=== PATIENT | female | born 1945 | race African-American/Black ===

== ENCOUNTER 2018-06-22 11:51 | Inpatient (IN) | payer MEDICARE, OTHER ==
[~2018-06-22] VITALS: Ht 172.7 cm; Wt 128.4 kg
--- NOTE | ~2018-06-22 | O ---
[facility] [place] [address] OPERATIVE REPORT Name: AZALIA CAMERON Room #: 460-P ADM IN M.R.#: [id number] Admission: 06/22/18 Attend Phys: Selina Randhawa MD Discharge: Date of : 49 Report #: [id number] THIS REPORT FOR: //name// CC: Vahe Randhawa MD DATE OF SERVICE: 06/24/2018 SURGEON: Tano Morgan MD IMPORT EXPORT CLERK: None. PREOPERATIVE DIAGNOSES: 1. Unstageable right gluteal decubitus ulcer. 2. Type 2 diabetes mellitus. 3. Hypertension. 4. Cardiomyopathy. 5. Morbid obesity. 6. Gastroesophageal reflux disease. POSTOPERATIVE DIAGNOSES: 1. Large stage 4 right gluteal and sacral decubitus ulcer. 2. Type 2 diabetes mellitus. 3. Hypertension. 4. Cardiomyopathy. 5. Morbid obesity. 6. Gastroesophageal reflux disease. PROCEDURE: 1. Excisional and ultrasonic debridement of stage 4 right gluteal and sacral decubitus ulcer including skin, subcutaneous tissue, muscle and bone (starting measurement 20.1 x 11.2 cm; ending measurement 23.3 x 17.2 x 10 cm deep (401 cm2)). 2. Application of Interfyl human connective tissue matrix/skin substitute. ANESTHESIA: General endotracheal anesthesia and local anesthetic. ESTIMATED BLOOD LOSS: 50 mL. SPECIMEN: 1. Right gluteal skin, subcutaneous tissue and muscle. 2. Sacral bone. COMPLICATIONS: None appreciated. [facility] [address] [place] [address] OPERATIVE REPORT Name: AZALIA CAMERON Room #: 460-P ADM IN M.R.#: [id number] Admission: 06/22/18 Attend Phys: Selina Randhawa MD Discharge: Date of : 47 Report #: [id number] INDICATIONS FOR PROCEDURE: This is a 73-year-old -Cypriot female patient with history of type 2 diabetes mellitus, cardiomyopathy, hypertension, morbid obesity and gastroesophageal reflux disease, who fell several days prior to her admission and was unable to get up. She was found down, but not with loss of consciousness. She was seen in the Emergency Room and was found to have a large right gluteal wound. The wound appears to be unstageable with malodorous drainage. She presents now for excisional and ultrasonic debridement with application of a human connective tissue matrix. DESCRIPTION OF PROCEDURE IN DETAIL: After the risks, benefits, and expectations of the operation were discussed in detail with the patient, informed consent was obtained. The patient was identified in the preoperative holding area. She has been receiving scheduled IV antibiotics. She was taken to the Operating Room and she was placed in the supine position. She was then given IV sedation and she was intubated without incident. She was placed in the left lateral decubitus position with the right side up. She was secured to the bed on a beanbag that was formed to her body. The right gluteal and sacral areas were then prepped and draped in a standard sterile fashion. A timeout was performed to identify the correct patient and procedure. The planned incision was drawn out with a skin marker. The initial measurements were taken prior to this. A sharp #10 blade scalpel was then used to make an incision around the wound following the markings after local anesthetic was infiltrated into the skin and subcutaneous tissue. Electrocautery was then used to excise the necrotic tissue including the skin and subcutaneous tissue down to right gluteal muscle, which also appeared to be nonviable. Dissection was carried down to healthy bleeding tissue. All necrotic tissue was removed. Dissection was carried down to the sacral bone. Cultures were taken from the more superficial tissue. Once the bone was reached and was felt to be involved, a rongeur was used to excise the outer table of the bone. The marrow was then cultured. All necrotic appearing/infected bone was then removed. A rasp was used on the outer table of the bone to smooth out any jagged edges. Bleeding points were then made hemostatic with electrocautery. The wound was copiously irrigated. The [employer] ultrasonic debridement device was then used to mechanically debride the entire surface area of the wound including skin edges, subcutaneous tissue, muscle and bone marrow. Bleeding points were then made hemostatic thereafter. Interfyl connective tissue matrix was then prepared on the backtable. Two vials were needed to cover the entire surface area of the wound. The matrix mixed with local anesthetic gave a total volume of 6 mL between the two vials. After applying the matrix, the back end of a scalpel was used to spread the matrix along the surface area of the wound. The wound was then dressed with Adaptic and wet-to-dry normal saline Kerlix, covered with ABD pads and tape. The [address] [address] OPERATIVE REPORT Name: AZALIA CAMERON Room #: 460-P ADM IN M.R.#: [id number] Admission: 06/22/18 Attend Phys: Selina Randhawa MD Discharge: Date of : 47 Report #: [id number] patient tolerated the procedure well. She was returned to supine position, awakened, extubated, and taken to Recovery Room in stable condition with no apparent intraoperative complications. <ELECTRONICALLY SIGNED> By: Tano Morgan MD, FACS 06/26/18 2218 0925 1000 Tano Morgan MD, FACS /nt
--- NOTE | ~2018-06-22 | PATH ---
[facility] [address] [address] PATHOLOGY RPT PROCEDURE Name: AZALIA STERN Room #: 460-P ADM IN M.R.#: [id number] Admission: 06/22/18 Date of : 49 Discharge: Report #: [id number] Path Case #: [id number] [facility] Accession Number: [id number] . 01 Material submitted: . PART A: DEBRIDEMENT-RIGHT GLUTEAL PART B: BONE DEBRIDEMENT . 01 Clinical history: . Right gluteal wound. . 02 Diagnosis: A. Right gluteal wound, debridement: - Fragments with fibrinoid degeneration and fat necrosis, consistent with wound tissue. . B. Bone, debridement: - Fragments of reactive and remodeled bone with areas of acute and chronic inflammation as well as remodeling, compatible with a history of wound. (IUV/db; 06/27/18) LBQ/06/27/2018 . 02 Electronically signed: . Nurys Gupta MD, Pathologist NPI- [id number] . 01 Gross description: . A. Received in formalin labeled "Azalia Stern, debridement" are multiple pieces of vega-kingston discolored skin and underlying yellow-vega lobulated fibroadipose tissue measuring 17.3 x 11.5 x 4.8 cm in aggregate. Upon sectioning, the cut surface is edematous and red-brown. A lead generation representative section is submitted in cassette A1. . B. Received in formalin labeled "Azalia Stern, bone debridement" is a 2.5 x 2.5 x 0.5 cm aggregate of vega-brown bony fragments. The specimen is submitted entirely in cassette B1 following decalcification. ([facility]; 06/26/2018) SYC/SYC . 02 Pathologist provided ICD-10: L03.317 . 02 CPT . 701228, [id number] Specimen Comment: Report sent to ,DR ALFARO / DR DUGAN Performed at: 01 [place] [address] PATHOLOGY RPT PROCEDURE Name: AZALIA STERN Room #: 460-P [facility] IN M.R.#: [id number] Admission: 06/22/18 Date of : 49 Discharge: Report #: [id number] Path Case #: [id number] [address] [facility] [address], [place], [place] [id number] MD Michael Ray MD Phone: [phone] Performed at: [address] [id number] MD Nurys Gupta MD Phone: [phone]
--- NOTE | ~2018-06-22 | HC ---
[facility] [place] [address] [address] CONSULTATION Name: AZALIA CAMERON Room #: 460- ADM IN M.R.#: [id number] Admission: 06/22/18 Attend Phys: Selina Randhawa MD Discharge: Date of : 47 Report #: [id number] THIS REPORT FOR: //name// CC: Deneen Randhawa DATE OF SERVICE: 06/23/2018 ATTENDING PHYSICIAN: Dr. Randhawa. REASON FOR CONSULTATION: Gluteal decubitus, antibiotic management. HISTORY OF PRESENT ILLNESS: The patient is a 73-year-old woman admitted through the Emergency Room with a history of progressing increasing weakness so much so she had been sleeping in her car for the last several days. She is found to have an unstageable decubitus on the right gluteal area with obvious foul smell coming from the area. The patient now complaining of gluteal pain as well as left knee pain. PAST MEDICAL HISTORY: Cholecystectomy. Diabetes mellitus. Hypertension. Previous cataract surgery. Cardiomyopathy. Gastroesophageal reflux disease. Morbid obesity. Degenerative joint disease. DRUG ALLERGIES: None listed. MEDICATIONS: She is currently on treatment with vancomycin 1 g IV every 8 hours, Zosyn 3.375 grams IV every 8 hours, also receiving spironolactone, Lasix, aspirin enteric coated, famotidine, glimepiride, insulin lispro per sliding scale, p.r.n. glucose glucagon, hydrocodone p.r.n., zolpidem tartrate p.r.n., polyethylene glycol daily, p.r.n. ondansetron, p.r.n. acetaminophen. SOCIAL HISTORY: See H and P, old records. FAMILY HISTORY: See H and P, old records. REVIEW OF SYSTEMS: Pain, left knee, worse on right and gluteal pain. PHYSICAL EXAMINATION: GENERAL: Morbidly obese woman. VITAL SIGNS: Temperature maximum 100.1, pulse 75, respirations 20, BP 130/66, height 5 feet 8 inches, weight 280 pounds. HEENMT: Head normocephalic, atraumatic. Pupils reactive. Mouth: Moist mucous membrane. No thrush. NECK: Supple, no thyromegaly. LUNGS: Clear. HEART: S1, S2. No gallop or murmur. [facility] [address] [place] [address] CONSULTATION Name: AZALIA CAMERON Room #: 460-P [facility] IN M.R.#: [id number] Admission: 06/22/18 Attend Phys: Selina Randhawa MD Discharge: Date of : 47 Report #: [id number] BREASTS: Deferred. ABDOMEN: Subcostal surgical scar, previous cholecystectomy and obese, difficult to examine. BACK: Unstageable right gluteal decubitus with foul odor of necrotic tissue coming through. PELVIC AND RECTAL: Deferred. EXTREMITIES: No clubbing, cyanosis. Pain motion left knee. LABORATORY DATA: Sodium 137, potassium 3, BUN 20, creatinine 1.1, glucose 196, SGOT 92, albumin 1.9 g/dL. CPK elevated 1093. Troponin 0.21, likely rhabdomyolysis. NT-proBNP 2586. WBC on admission 18.2, hemoglobin 10.9, platelets 482,000. Repeat WBC today is 15,700, hemoglobin 9.8 g/dL. Urinalysis revealed proteinuria, trace glucose, 4+ urobilinogen, fine granular casts and hyaline casts present. MICROBIOLOGY DATA: Blood cultures were obtained, they remain negative so far. RADIOLOGY EVALUATION: Chest x-ray, cardiomegaly. CT scan of the brain revealed microvascular disease, atrophy, enlargement of ventricles. CT scan of the abdomen and pelvis revealed colonic diverticulitis status post cholecystectomy and right renal cyst and question linear area of gas collection, right gluteal area. ASSESSMENT: 1. Unstageable right gluteal decubitus. 2. Low-grade fever. 3. Question urinary tract infection. 4. Morbid obesity. 5. Diabetes mellitus. 6. Malnutrition. 7. Anemia of chronic disease. 8. Abnormal liver function tests and the patient is status post cholecystectomy. SUGGESTIONS: Recommend proceed with surgery. Continue coverage with vancomycin and Zosyn. Monitor laboratory parameters. Possibly discontinue vancomycin unless MRSA is isolated. Dr. Randhawa, thank you for requesting my suggestion. <ELECTRONICALLY SIGNED> By: Vahe Flores MD 06/24/18 1104 1123 1521 Vahe Flores MD /nt
--- NOTE | ~2018-06-22 | PATH ---
[facility] [address] [place] [address] PATHOLOGY RPT PROCEDURE Name: AZALIA STERN Room #: 426-P ADM IN M.R.#: [id number] Admission: 06/22/18 Date of : 47 Discharge: Report #: [id number] Path Case #: [id number] [facility] Accession Number: [id number] . 01 Material submitted: . PART A: RIGHT GLUTEAL TISSUE PART B: SACRAL BONE . 01 Clinical history: . Decubitus ulcer right buttocks and sacrum . 02 Diagnosis: A. Right gluteal tissue, debridement: - Fragments of skeletal muscle with fibrinoid degeneration. - Fragments of fibroadipose tissue showing marked acute inflammation and fat necrosis. . B. Sacral bone, debridement: - Fragments of dense fibrous tissue as well as bone, marked acute inflammation and fibrinoid degeneration, bacterial aggregates as well as necrosis. (IUV/db; 07/04/18) LBQ/07/04/2018 . 02 Electronically signed: . Nurys Gupta MD, Pathologist NPI- [id number] . 01 Gross description: . A. The specimen is received in formalin, labeled "Azalia Stern, right gluteal tissue". Received are multiple segments of dusky kingston-brown necrotic-appearing soft tissue with a slight amount of attached lobulated tissue measuring 6.9 x 6.1 x 2.8 cm in aggregate dimensions. The specimen is submitted representatively in cassette A1. . B. The specimen is received in formalin, labeled "Azalia Stern, sacral bone". Received are multiple segments of kingston-vega soft tissue admixed with possible bone measuring 2.0 x 1.4 x 0.5 cm in aggregate dimensions. The specimen is submitted entirely in cassette B1, following light decalcification. ([facility]; 07/01/2018) QAC/QAC . 02 Pathologist provided ICD-10: L89.314, L89.159 . 02 [place] [address] PATHOLOGY RPT PROCEDURE Name: AZALIA STERN Room #: 426-P ADM IN M.R.#: [id number] Admission: 06/22/18 Date of : 49 Discharge: Report #: [id number] Path Case #: [id number] Specimen Comment: A courtesy copy of this report has been sent to Specimen Comment: [phone], , . Specimen Comment: Report sent to ,DR DUGAN,DR ALFARO Specimen Comment: DR LAWRENCE Specimen Comment: A duplicate report has been generated due to demographic updates. Performed at: [address], [place] [id number] MD Michael Ray MD Phone: [phone] Performed at: [address] [id number] MD Nurys Gupta MD Phone: [phone]
--- NOTE | ~2018-06-22 | O ---
[facility] [place] [place] [address] OPERATIVE REPORT Name: AZALIA CAMERON Room #: 426-P ADM IN M.R.#: [id number] Admission: 06/22/18 Attend Phys: Selina Randhawa MD Discharge: Date of : 47 Report #: [id number] THIS REPORT FOR: //name// CC: Vahe Randhawa MD DATE OF SERVICE: 06/29/2018 SURGEON: Tano Morgan MD REAL ESTATE OFFICE SUPERVISOR: Al Thomas DO. PREOPERATIVE DIAGNOSES: 1. Large stage 4, right gluteal and sacral decubitus ulcer 2. Type 2 diabetes mellitus. 3. Hypertension. 4. Cardiomyopathy. 5. Morbid obesity. 6. Gastroesophageal reflux disease. POSTOPERATIVE DIAGNOSES: 1. Large stage 4, right gluteal and sacral decubitus ulcer 2. Type 2 diabetes mellitus. 3. Hypertension. 4. Cardiomyopathy. 5. Morbid obesity. 6. Gastroesophageal reflux disease. PROCEDURE: 1. Laparoscopic assisted diverting end-transverse colostomy. 2. Laparoscopic lysis of adhesions. 3. Laparoscopic primary repair of incarcerated umbilical hernia. 4. Excisional and ultrasonic debridement of stage 4 right gluteal and sacral decubitus ulcer including skin, subcutaneous tissue, muscle and bone (starting and ending measurements of 23.3 x 17.2 x 10 cm for a total of 401 square cm). 5. Application of Interfyl human connective tissue matrix/skin substitute. ANESTHESIA: General endotracheal anesthesia and local anesthetic. ESTIMATED BLOOD LOSS: 25 mL. SPECIMEN: Gluteus muscle and sacral bone. COMPLICATIONS: None appreciated. [facility] [address] [place] [address] OPERATIVE REPORT Name: AZALIA CAMERON Room #: 426-P ADM IN .R.#: [id number] Admission: 06/22/18 Attend Phys: Selina Randhawa MD Discharge: Date of : 47 Report #: [id number] INDICATIONS FOR PROCEDURE: This is a 73-year-old -[place] female patient with history of type 2 diabetes mellitus as well as cardiomyopathy, hypertension and morbid obesity, who had fallen several days prior to her admission and formed a right gluteal decubitus ulcer that was unstageable. I performed excisional and ultrasonic debridement of the ulcerated area, which was found to be stage 4 and into the bone. She did well from an operative standpoint; however, she has had difficulty with fecal contamination of the wound. She presents today for a diverting colostomy and re-debridement. OPERATIVE FINDINGS: The wound measurements are as noted above. Necrotic tissue had demarcated involving the gluteal muscle and portion of the bone. Cultures were taken from the deep portion of the bone. Laparoscopically, the patient had significant intraabdominal adhesions as a result of her previous open cholecystectomy. After extensive lysis of adhesions, I was able to identify the transverse colon as tenia were seen. The colon had been plastered to the anterior abdominal wall. After freeing this up enough to create a mesenteric window, I was able to create the colostomy. Lysis of adhesions was also necessary to free up the colon enough that it could be delivered without tension or retraction. After creation of the stoma, the stoma itself was palpably patent beyond the fascial level. The mucosa was pink and viable. The patient also had an umbilical hernia that was incarcerated with omentum and abdominal wall fat. This was amenable to primary repair laparoscopically with a separate suture. At the conclusion of the operation, sponge, needle and instrument counts were correct. DESCRIPTION OF PROCEDURE IN DETAIL: After the risks, benefits and expectations of the operation were discussed in detail with the patient, informed consent was obtained. The patient was identified in the preoperative holding area. She was given IV antibiotics as documented in the chart [facility]. She has been receiving scheduled IV antibiotics as well. She was taken to the operating room. She was placed in the supine position. SCDs were placed on the patient's bilateral lower extremities and pneumatic compression was initiated. The patient was then given IV sedation, and she was intubated without incident. She was placed on the operating table in the left lateral decubitus position with the right side up. She was placed on a beanbag and secured to the table. Her gluteal and sacral area was then prepped and draped in the standard sterile fashion. A time-out was performed to identify the correct patient and procedure. Local anesthetic was infiltrated into the skin and subcutaneous tissue as well [address] [address] OPERATIVE REPORT Name: AZALIA CAMERON Room #: 426-P ADM IN M.R.#: [id number] Admission: 06/22/18 Attend Phys: Selina Randhawa MD Discharge: Date of : 47 Report #: [id number] as into the deeper tissue. Necrotic, nonviable tissue had been demarcated. There are also areas of fecal soilage and staining. The necrotic/nonviable tissue was then sharply excised down to healthy bleeding tissue. Bleeding points were made hemostatic with electrocautery. The wound was then irrigated. The [employer] ultrasonic debridement device was then used to mechanically debride the entire wound surface area. Bleeding points were again made hemostatic. After doing so, 6 total mL of Interfyl skin substitute was applied to the entire wound surface area, spread out with the back end of a scalpel. Adaptic was placed over the wound. The wound was dressed with a normal saline, moistened Kerlix dressing, ABD pads and tape. The patient was then returned to the supine position and transferred back onto the operating table. Her abdomen was prepped and draped in standard sterile fashion. Local anesthetic was infiltrated into the skin and subcutaneous tissue infraumbilically where a vertical incision was made. The 5 mm Visiport was placed intraperitoneally with a 0-degree angled laparoscope. Pneumoperitoneum was achieved with insufflation of carbon dioxide to 15 mmHg. Additional ports were placed in the left lateral and left subcostal areas under direct visualization after local anesthetic was infiltrated into the skin, subcutaneous tissue and appropriately sized incisions were made. Operative findings are as noted above. The omental adhesions to the anterior abdominal wall were then carefully taken down with blunt dissection and judicious use of the ultrasonic dissector. After taking these adhesions down, more adhesions were present in the right upper quadrant from her previous open cholecystectomy. Extensive adhesiolysis was undertaken to free the entire abdominal wall. The colon was identified as tenia were seen, and this appeared to be transverse colon. A window was made in the mesentery. The 5 mm infraumbilical port was then upsized to a 12 mm port. A green load 60 mm endoscopic DUSTIN stapler was then used to staple and divide the colon in this area. The omentum on the superior aspect of the colon was dissected over to the hepatic flexure to free the colon enough that the planned colostomy would not retract. An appropriate area was then chosen for the end colostomy. A circular incision was made. Dissection was carried down to the fascia. A cruciate incision was then made. A 5 mm Visiport was placed directly through the abdominal wall. A grasper was then used to grasp the staple line of the proximal colon. The fascia was then further opened and the colon was delivered externally. There was no significant tension on the planned stoma. The staple line was excised, and the stoma was matured with a Elizabeth type interrupted 3-0 Vicryl sutures at the 12, 3, 6 and 9 o'clock positions. Short runs of 3-0 Vicryl were then used to completely mature the stoma. The abdominal cavity was then reentered. The 12 mm port site fascial opening was then closed with an 0 PDS suture. Incarcerated umbilical hernia was identified at this time. The omentum had been dissected out of the defect, as had the abdominal wall fat. A gdwqas-ps-foqye 0 PDS sutures were then placed with the needle tipped suture grasper under direct visualization. The suture was tied under [facility] [address] [place] [address] OPERATIVE REPORT Name: AZALIA CAMERON Room #: 426-P [facility] IN M.R.#: [id number] Admission: 06/22/18 Attend Phys: Selina Randhawa MD Discharge: Date of : 47 Report #: [id number] direct visualization as well to close the defect without incorporation of intra-abdominal content. The fascial suture was tied under direct visualization. The abdominal cavity was then desufflated, and the ports were removed. Interrupted subcuticular 4-0 Monocryl sutures and Dermabond were used to close the skin incisions. The patient tolerated the procedure well. The stoma was palpably patent. The patient was awakened, extubated and taken to recovery room in stable condition with no apparent intraoperative complications. <ELECTRONICALLY SIGNED> By: Tano Morgan MD, FACS 07/05/18 1415 1416 1523 Tano Morgan MD, FACS /nt
--- NOTE | ~2018-06-22 | EKG ---
[address] [place] [address] ELECTROCARDIOGRAM REPORT Name: AZALIA CAMERON Room #: 460-P ADM IN M.R.#: [id number] Admission: 06/22/18 Attend Phys: Selina Randhawa MD Discharge: Date of : 47 Report #: [id number] THIS REPORT FOR: //name// [facility] ED Test Date: 2018-06-22 Test Time: 12:30:58 Pat Name: AZALIA CAMERON Department: Room: 460 Gender: F Compo Conveyor Operator: JOANNA : 1945 Requested By: Nancy Moran Order Number: [id number] MD: Gordo Echeverria Measurements Intervals Secretary Rate: 89 P: 50 DE: 173 QRS: -26 QRSD: 102 T: 121 QT: 372 QTc: 453 Interpretive Statements Sinus rhythm Leftward axis Poor R wave progression Nonspecific T wave abnormality Compared to ECG 06/23/2016 19:27:09 Premature ventricular complexes are no longer present Electronically Signed On 06-23-2018 7:46:22 NURSING ASSOCIATE by Gordo Echeverria [email or web address] <ELECTRONICALLY SIGNED> By: Gordo Echeverria MD, [facility] 06/23/18 0746 1230 1230 Gordo Echeverria MD, [facility] /EPI
--- NOTE | ~2018-06-22 | HC ---
[facility] [place] [address] CONSULTATION Name: AZALIA CAMERON Room #: 460-P ADM IN M.R.#: [id number] Admission: 06/22/18 Attend Phys: Selina Randhawa MD Discharge: Date of : 49 Report #: [id number] THIS REPORT FOR: //name// CC: Deneen Randhawa DATE OF SERVICE: 06/23/2018 CHIEF COMPLAINT: Multiple pressure ulcers. HISTORY OF PRESENT ILLNESS: This is a 73-year-old female patient who was admitted through the emergency department with increasing weakness. She was unable to get out of the car and apparently was left sitting in her car for a couple of days. She was found to have pressure ulcers to the right gluteal region and I have been asked to see her with regard to wound care. The patient states she is having some pain, generally weak. She is a little bit slow to answer questions. PAST MEDICAL HISTORY: Positive for diabetes, hypertension, cardiomyopathy, gastroesophageal reflux disease, morbid obesity, and previous cholecystectomy. ALLERGIES: None. MEDICATIONS: Include vancomycin, Zosyn, spironolactone, Lasix, enteric coated aspirin, famotidine, glimepiride, insulin, zolpidem, ondansetron, polyethylene glycol. SOCIAL HISTORY: Negative for drug, alcohol or tobacco use. FAMILY HISTORY: Noncontributory. REVIEW OF SYSTEMS: CONSTITUTIONAL: The patient denies fever, chills or weight loss. NEUROLOGICAL: The patient denies focal weakness, numbness or tingling. EYES: The patient denies visual changes, redness or drainage. ENT: The patient denies earache, nasal drainage or sore throat. CARDIOVASCULAR: The patient denies chest pain, palpitations or diaphoresis. PULMONARY: The patient denies cough or shortness of breath. GASTROINTESTINAL: Does complain of some mild nausea. Denies vomiting, diarrhea or abdominal pain. GENITOURINARY: Denies frequency. Denies dysuria. MUSCULOSKELETAL: The patient does complain of some pain in the gluteal region. Other systems in a 14-point review of systems are negative. PHYSICAL EXAMINATION: [facility] [address] [place] [address] CONSULTATION Name: AZALIA CAMERON Room #: 460-P [facility] IN ..#: [id number] Admission: 06/22/18 Attend Phys: Selina Randhawa MD Discharge: Date of : 47 Report #: [id number] VITAL SIGNS: Include temperature 98.2, pulse 75, respiratory rate of 20, blood pressure 130/66. GENERAL: This is a chronically ill-appearing female patient who appears to be in no obvious distress. She is a little bit slow to answer questions. HEENT: Head normocephalic. Nose and throat are clear. NECK: Supple. LUNGS: Clear. HEART: Regular rhythm without murmur. ABDOMEN: Soft, bowel sounds are present. EXTREMITIES: The gluteal sacral region demonstrates an unstageable pressure ulcer, encompassing large area of the right buttocks. It is foul smelling with necrotic tissue and eschar present. She has a pressure ulceration that is unstageable with dry stable eschar to her right elbow. Heels are intact. NEUROLOGIC: The patient is alert and does move all 4 extremities spontaneously. LABORATORY DATA: Sodium 137, potassium 3.0, chloride 98, CO2 31, BUN 20, creatinine 1.1, glucose 136, total protein 8.6, albumin very low at 1.9. White blood cell count is 15.3 with hemoglobin 9.6. CLINICAL IMPRESSION: 1. Unstageable pressure ulcerations to the right gluteal region, as well as right elbow following prolonged time sitting up in the car. 2. Diabetes mellitus. 3. Morbid obesity. 4. Wound infection, right gluteal region. RECOMMENDATIONS: At this point in time, recommend a low air loss mattress. She will need q. 2 hour turning the positioning, will need PRAFO boots while she is in bed. Recommend Betadine to the right elbow. The right gluteal region; however, is necrotic and infected and likely quite deep. We will consult general surgery for operative debridement and then additional wound care decision making forthcoming after that. She is going to need aggressive nutritional support. All questions have been answered. I appreciate being asked to see her in consultation. <ELECTRONICALLY SIGNED> By: Oswald Romero MD 06/27/18 0922 [id number] Oswald Romero MD /nt
[~2018-06-22 11:51] MED LIST: ACETAMINOPHEN325 M1 PO; ACTOS 45 MG45 M1 PO; ADULT LOW DOSE81 MG PO; ALDACTONE25 MG PO; AMARYL4 MG PO; AMLODIPINE BESY10 MG PO; ATORVASTATIN CA40 MG PO; CALCIUM 600 +1 EAC1 PO; CARVEDILOL25 MG PO; CRESTOR10 MG PO; IRBESARTAN300 MG PO; LANOXIN 0.120.125 M1 PG; LASIX 40 MG TAB40 M2 PO; LOSARTAN-HCTZ1 EAC1 PO; METFORMIN HCL500 M2 PO; METOCLOPRAMIDE10 MG PO; NORCO 5-325 TA1 EACH PO; OMEPRAZOLE40 MG PO; POTASSIUM20 PO; PRED FORTE 1% EY5 M1 OP; PREDNISONE 20 M20 MG PO; PREVACID 24HR15 MG PO; TRIBENZOR 20-51 EACH PO; VITAMIN D32000 UNIT PO; ZETIA10 MG PO; ZPAK PO
[2018-06-22 11:52] VITALS: BP 138/80
[2018-06-22 14:11] LABS: ABSOLUTE NEUTROPHILS 15.7 thou/uL (1.4-8.2); BASOPHILS 0.2 % (0.0-2.0); HEMATOCRIT 33.5 % (37.0-47.0); HEMOGLOBIN 10.9 gm/dL (12.0-15.0); LYMPHOCYTES 4.3 % (24.0-44.0); MCHC 32.6 g/dL (28.0-37.0); MCV 85.8 fL (80.0-100.0); MONOCYTES 9.1 % (1.0-8.0); PLATELET COUNT 482 thou/uL (150-400); POLYS 86.4 % (36.0-66.0); RBC 3.91 mil/uL (4.20-5.00); WBC 18.2 thou/uL (4.0-11.0)
[2018-06-22 14:19] LABS: CALCIUM 9.5 mg/dL (8.5-10.1); CREATININE 1.1 mg/dL (0.6-1.0); POTASSIUM 3.4 mmol/L (3.5-5.1)
[2018-06-22 14:34] LABS: ALBUMIN 1.9 g/dL (3.4-5.0); TOTAL BILIRUBIN 1.1 mg/dL (<0.1-1.0); TOTAL PROTEIN 8.6 g/dL (6.4-8.2); TROPONIN-I 0.21 ng/mL (<0.06)
[2018-06-22 14:48] LABS: URINE BILIRUBIN NEGATIVE (Negative); URINE BLOOD 1+ (Negative); URINE CLARITY CLEAR; URINE COLOR YELLOW; URINE GLUCOSE-RANDOM* TRACE (Negative); URINE KETONES NEGATIVE (Negative); URINE LEUKOCYTES-REFLEX NEGATIVE (Negative); URINE NITRITE-REFLEX NEGATIVE (Negative); URINE PROTEIN (DIPSTICK) 1+ (Negative); URINE SPECIFIC GRAVITY 1.025 (1.005-1.035)
[2018-06-22 15:08] LABS: SQUAMOUS None Seen /LPF (0-3); URINE WBC-REFLEX None Seen /HPF (0-5)
[2018-06-22 15:09] LABS: AMORPHOUS URATES Few /LPF (None Seen); BACTERIA-REFLEX None Seen /HPF (None Seen); FINE GRANULAR CASTS 0-3 Few /LPF (None Seen); HYALINE CASTS 0-3 Few /LPF (None Seen); URINE RBC 0-2 Rare /HPF (0-2)
[2018-06-22 16:32] VITALS: BP 136/71
[2018-06-22 17:24] VITALS: BP 136/71
[2018-06-22 18:28] VITALS: BP 136/53
[2018-06-22 19:43] VITALS: BP 145/45
[2018-06-23 03:44] VITALS: BP 131/65
[2018-06-23 05:49] LABS: HEMOGLOBIN 9.8 gm/dL (12.0-15.0); MCH 28.2 pg (26.0-34.0); MCHC 32.8 g/dL (28.0-37.0); RBC 3.49 mil/uL (4.20-5.00); RDW 15.1 % (10.5-14.5); WBC 15.7 thou/uL (4.0-11.0)
[2018-06-23 06:03] LABS: CREATININE 1.1 mg/dL (0.6-1.0)
[2018-06-23 09:15] VITALS: BP 130/66
[2018-06-23 09:22] VITALS: BP 130/66
[2018-06-23 09:30] LABS: MAGNESIUM 2.1 mg/dL (1.8-2.4)
[2018-06-23 15:46] VITALS: BP 133/50
[2018-06-23 20:01] VITALS: BP 126/50
[2018-06-24] VITALS (8 sets, daily range): BP systolic 101–149; BP diastolic 54–67
[2018-06-24 04:36] LABS: ABSOLUTE NEUTROPHILS 12.1 thou/uL (1.4-8.2); BASOPHILS 0.2 % (0.0-2.0); EOSINOPHILS 0.4 % (0.0-3.0); HEMATOCRIT 29.9 % (37.0-47.0); HEMOGLOBIN 9.6 gm/dL (12.0-15.0); MCH 27.3 pg (26.0-34.0); MCHC 32.1 g/dL (28.0-37.0); MCV 84.9 fL (80.0-100.0); MONOCYTES 11.2 % (1.0-8.0); PLATELET COUNT 448 thou/uL (150-400); POLYS 79.2 % (36.0-66.0); RBC 3.52 mil/uL (4.20-5.00); RDW 14.7 % (10.5-14.5); WBC 15.3 thou/uL (4.0-11.0)
[2018-06-24 04:54] LABS: CALCIUM 8.5 mg/dL (8.5-10.1); CREATININE 0.9 mg/dL (0.6-1.0)
[2018-06-25 02:16] VITALS: BP 126/51
[2018-06-25 05:47] LABS: ABSOLUTE NEUTROPHILS 10.2 thou/uL (1.4-8.2); BASOPHILS 0.3 % (0.0-2.0); EOSINOPHILS 1.3 % (0.0-3.0); HEMOGLOBIN 8.6 gm/dL (12.0-15.0); LYMPHOCYTES 10.9 % (24.0-44.0); MCH 28.2 pg (26.0-34.0); MCHC 32.9 g/dL (28.0-37.0); MCV 85.6 fL (80.0-100.0); MONOCYTES 11.3 % (1.0-8.0); PLATELET COUNT 429 thou/uL (150-400); POLYS 76.2 % (36.0-66.0); RBC 3.04 mil/uL (4.20-5.00); RDW 15.2 % (10.5-14.5); WBC 13.3 thou/uL (4.0-11.0)
[2018-06-25 10:00] VITALS: BP 141/69
[2018-06-25 15:54] VITALS: BP 131/61
[2018-06-25 19:26] VITALS: BP 146/68
[2018-06-26 04:50] VITALS: BP 134/53
[2018-06-26 06:01] LABS: HEMATOCRIT 25.5 % (37.0-47.0); HEMOGLOBIN 8.4 gm/dL (12.0-15.0); MCH 28.3 pg (26.0-34.0); MCHC 33.2 g/dL (28.0-37.0); MCV 85.2 fL (80.0-100.0); PLATELET COUNT 482 thou/uL (150-400); RBC 2.99 mil/uL (4.20-5.00); RDW 14.7 % (10.5-14.5); WBC 13.3 thou/uL (4.0-11.0)
[2018-06-26 06:10] LABS: CREATININE 0.9 mg/dL (0.6-1.0)
[2018-06-26 06:12] LABS: POTASSIUM 2.6 mmol/L (3.5-5.1)
[2018-06-26 08:00] VITALS: BP 141/47
[2018-06-26 09:28] LABS: ABSOLUTE NEUTROPHILS 10.8 thou/uL (1.4-8.2); ANISOCYTOSIS SLIGHT
[2018-06-26 15:19] VITALS: BP 146/57
[2018-06-26 19:58] VITALS: BP 116/58
[2018-06-27 02:36] VITALS: BP 150/66
[2018-06-27 03:35] LABS: ABSOLUTE NEUTROPHILS 12.5 thou/uL (1.4-8.2); BASOPHILS 0.3 % (0.0-2.0); EOSINOPHILS 1.4 % (0.0-3.0); HEMATOCRIT 26.4 % (37.0-47.0); HEMOGLOBIN 8.6 gm/dL (12.0-15.0); LYMPHOCYTES 11.2 % (24.0-44.0); MCHC 32.7 g/dL (28.0-37.0); MCV 85.5 fL (80.0-100.0); MONOCYTES 8.9 % (1.0-8.0); PLATELET COUNT 543 thou/uL (150-400); POLYS 78.2 % (36.0-66.0); RBC 3.09 mil/uL (4.20-5.00); RDW 15.4 % (10.5-14.5)
[2018-06-27 03:45] LABS: CALCIUM 8.4 mg/dL (8.5-10.1); CREATININE 0.9 mg/dL (0.6-1.0); POTASSIUM 3.4 mmol/L (3.5-5.1)
[2018-06-27 07:46] VITALS: BP 113/38
[2018-06-27 11:20] VITALS: BP 117/60
[2018-06-27 15:07] VITALS: BP 117/66
[2018-06-27 19:29] VITALS: BP 123/63
[2018-06-28 03:50] VITALS: BP 124/59
[2018-06-28 05:59] LABS: BASOPHILS 0.5 % (0.0-2.0); EOSINOPHILS 1.2 % (0.0-3.0); HEMATOCRIT 25.1 % (37.0-47.0); HEMOGLOBIN 8.5 gm/dL (12.0-15.0); LYMPHOCYTES 12.2 % (24.0-44.0); MCH 28.7 pg (26.0-34.0); MCHC 33.7 g/dL (28.0-37.0); MCV 85.3 fL (80.0-100.0); POLYS 75.1 % (36.0-66.0); RBC 2.95 mil/uL (4.20-5.00); RDW 14.9 % (10.5-14.5); WBC 14.7 thou/uL (4.0-11.0)
[2018-06-28 06:06] LABS: PLATELET COUNT 621 thou/uL (150-400)
[2018-06-28 06:11] LABS: CALCIUM 8.9 mg/dL (8.5-10.1); CREATININE 0.8 mg/dL (0.6-1.0); POTASSIUM 3.4 mmol/L (3.5-5.1)
[2018-06-28 06:34] LABS: PLATELET ESTIMATE MARKEDLY INCREASED
[2018-06-28 08:00] VITALS: BP 134/70
[2018-06-28 16:00] VITALS: BP 130/46
[2018-06-28 20:00] VITALS: BP 137/59
[2018-06-29] VITALS (9 sets, daily range): BP systolic 116–154; BP diastolic 49–74
[2018-06-29 03:24] LABS: ABSOLUTE NEUTROPHILS 10.3 thou/uL (1.4-8.2); BASOPHILS 0.5 % (0.0-2.0); EOSINOPHILS 1.2 % (0.0-3.0); HEMATOCRIT 24.1 % (37.0-47.0); HEMOGLOBIN 7.7 gm/dL (12.0-15.0); LYMPHOCYTES 13.6 % (24.0-44.0); MCH 27.6 pg (26.0-34.0); MCHC 32.2 g/dL (28.0-37.0); MCV 85.8 fL (80.0-100.0); MONOCYTES 8.9 % (1.0-8.0); PLATELET COUNT 659 thou/uL (150-400); POLYS 75.8 % (36.0-66.0); RBC 2.81 mil/uL (4.20-5.00); RDW 15.7 % (10.5-14.5); WBC 13.6 thou/uL (4.0-11.0)
[2018-06-29 03:50] LABS: CALCIUM 8.1 mg/dL (8.5-10.1); CREATININE 0.9 mg/dL (0.6-1.0); POTASSIUM 3.7 mmol/L (3.5-5.1)
[2018-06-29 16:22] LABS: % SATURATION 20 % (20-39); IRON 28 ug/dL (50-170); TIBC 142 ug/dL (250-450)
[2018-06-29 16:49] LABS: FOLIC ACID 5.3 ng/mL (8.6-58.9)
[2018-06-30 03:25] VITALS: BP 127/50
[2018-06-30 04:15] LABS: ABSOLUTE NEUTROPHILS 16.2 thou/uL (1.4-8.2); BASOPHILS 0.2 % (0.0-2.0); HEMATOCRIT 24.3 % (37.0-47.0); HEMOGLOBIN 7.8 gm/dL (12.0-15.0); LYMPHOCYTES 5.6 % (24.0-44.0); MCH 27.8 pg (26.0-34.0); MCHC 32.3 g/dL (28.0-37.0); MCV 86.2 fL (80.0-100.0); MONOCYTES 6.3 % (1.0-8.0); POLYS 87.9 % (36.0-66.0); RBC 2.82 mil/uL (4.20-5.00); RDW 15.7 % (10.5-14.5); WBC 18.4 thou/uL (4.0-11.0)
[2018-06-30 04:16] LABS: PLATELET COUNT 753 thou/uL (150-400)
[2018-06-30 04:26] LABS: CALCIUM 8.5 mg/dL (8.5-10.1); CREATININE 0.9 mg/dL (0.6-1.0); MAGNESIUM 1.9 mg/dL (1.8-2.4); POTASSIUM 4.3 mmol/L (3.5-5.1)
[2018-06-30 04:44] LABS: LARGE PLATELETS FEW; PLATELET ESTIMATE MARKEDLY INCREASED
[2018-06-30 08:16] VITALS: BP 119/60
[2018-06-30 14:06] VITALS: BP 129/53
[2018-06-30 19:44] VITALS: BP 141/67
[2018-07-01 04:40] VITALS: BP 136/60
[2018-07-01 06:45] LABS: ABSOLUTE NEUTROPHILS 8.4 thou/uL (1.4-8.2); BASOPHILS 0.3 % (0.0-2.0); EOSINOPHILS 1.5 % (0.0-3.0); HEMATOCRIT 22.2 % (37.0-47.0); MCH 27.6 pg (26.0-34.0); MCHC 31.6 g/dL (28.0-37.0); MCV 87.3 fL (80.0-100.0); MONOCYTES 8.5 % (1.0-8.0); PLATELET COUNT 694 thou/uL (150-400); POLYS 74.7 % (36.0-66.0); RBC 2.54 mil/uL (4.20-5.00); RDW 16.1 % (10.5-14.5); WBC 11.2 thou/uL (4.0-11.0)
[2018-07-01 06:46] LABS: CREATININE 0.7 mg/dL (0.6-1.0); POTASSIUM 3.4 mmol/L (3.5-5.1)
[2018-07-01 07:49] VITALS: BP 117/62
[2018-07-01 14:34] VITALS: BP 128/54
[2018-07-01 20:03] VITALS: BP 139/71
[2018-07-02 06:45] VITALS: BP 130/55
[2018-07-02 08:45] VITALS: BP 129/64
[2018-07-02 20:30] VITALS: BP 148/72
[2018-07-03 00:27] VITALS: BP 130/67
[2018-07-03 04:30] VITALS: BP 115/89
[2018-07-03 08:42] VITALS: BP 138/63
[2018-07-03 17:06] VITALS: BP 139/76
[2018-07-03 20:00] VITALS: BP 142/59
[2018-07-04 05:10] VITALS: BP 155/69
[2018-07-04 08:06] VITALS: BP 150/76
[2018-07-04 10:45] VITALS: BP 137/59
[2018-07-04 19:25] VITALS: BP 138/50
[2018-07-05 04:14] VITALS: BP 139/72
[2018-07-05 07:34] VITALS: BP 133/53
[2018-07-05 16:48] VITALS: BP 128/57
[2018-07-05 20:00] VITALS: BP 116/63
[2018-07-06 04:30] VITALS: BP 138/67
[2018-07-06 06:14] LABS: ABSOLUTE NEUTROPHILS 5.3 thou/uL (1.4-8.2); BASOPHILS 0.5 % (0.0-2.0); HEMATOCRIT 23.2 % (37.0-47.0); HEMOGLOBIN 7.6 gm/dL (12.0-15.0); LYMPHOCYTES 21.1 % (24.0-44.0); MCH 28.5 pg (26.0-34.0); MCHC 32.5 g/dL (28.0-37.0); MCV 87.6 fL (80.0-100.0); MONOCYTES 8.9 % (1.0-8.0); PLATELET COUNT 625 thou/uL (150-400); POLYS 67.5 % (36.0-66.0); RBC 2.65 mil/uL (4.20-5.00); RDW 17.6 % (10.5-14.5); WBC 7.9 thou/uL (4.0-11.0)
[2018-07-06 06:38] LABS: ALBUMIN 1.5 g/dL (3.4-5.0); CALCIUM 8.9 mg/dL (8.5-10.1); CREATININE 0.7 mg/dL (0.6-1.0); MAGNESIUM 1.6 mg/dL (1.8-2.4); POTASSIUM 3.7 mmol/L (3.5-5.1); TOTAL BILIRUBIN 0.3 mg/dL (<0.1-1.0)
[2018-07-06 08:17] VITALS: BP 156/73
[2018-07-06 16:49] VITALS: BP 140/65
[2018-07-06 19:57] VITALS: BP 153/72
[2018-07-07 02:42] VITALS: BP 148/65
[2018-07-07 08:15] VITALS: BP 130/58
[2018-07-07 20:50] VITALS: BP 112/86
[2018-07-08 02:20] VITALS: BP 141/57
[2018-07-08 07:45] VITALS: BP 128/52
[2018-07-08 16:27] VITALS: BP 149/62
[2018-07-08] MEDS ORDERED: IRON325 PO (17:27)
[2018-07-08] MEDS ORDERED: HEPARIN SO5000 UNIT/ SUBQ (17:27)
[2018-07-08] MEDS ORDERED: VOLTAREN GEL 1100 G1 TOP (17:29)
[2018-07-08] MEDS ORDERED: AMBIEN 5 MG TABL5 M1 PO (17:30)
[2018-07-08] MEDS ORDERED: MUCINEX DM ER1 EAC1 PO (17:30)
[2018-07-08] MEDS ORDERED: NEURONTIN 300300 M1 PO (17:30)
[2018-07-08] MEDS ORDERED: UNASYN 3 GM VIAL3 G1 IVPB (17:34)
== END 2018-07-08 18:23 | DRG 853 ==
LOC: ER 11:51 → EROBS 16:26 → 4W 16:26 → 4E 16:26 → 4W 17:21 → 4E 07-04 08:36
PROVIDERS: Hospitalist; Internal Medicine; Nurse Practitioner; Nurse Practitioner Family; Student in an Organized Health Care Education/Training Program
DX: A41.9 Sepsis, unspecified organism (principal); L89.314 Pressure ulcer of right buttock, stage 4; L89.154 Pressure ulcer of sacral region, stage 4; E43 Unspecified severe protein-calorie malnutrition; I42.9 Cardiomyopathy, unspecified; L03.90 Cellulitis, unspecified; D62 Acute posthemorrhagic anemia; Z68.41 Body mass index [BMI] 40.0-44.9, adult; I10 Essential (primary) hypertension; K21.9 Gastro-esophageal reflux disease without esophagitis; M19.90 Unspecified osteoarthritis, unspecified site; E66.01 Morbid (severe) obesity due to excess calories; D63.8 Anemia in other chronic diseases classified elsewhere; L89.010 Pressure ulcer of right elbow, unstageable; R29.6 Repeated falls; M81.0 Age-related osteoporosis without current pathological fracture; E55.9 Vitamin D deficiency, unspecified; E87.6 Hypokalemia; E11.622 Type 2 diabetes mellitus with other skin ulcer; Z90.49 Acquired absence of other specified parts of digestive tract; Z98.49 Cataract extraction status, unspecified eye; Z83.3 Family history of diabetes mellitus; Z82.49 Family history of ischemic heart disease and other diseases of the circulatory system
CPT/HCPCS: 10045; 10047; 10783; 27000; 50010; 50101; 50249; 50290; 50386; 50403; 50555; 50558; 50740; 50962; 52265; 53307; 54022; 54118; 56462; 56524; 56525; 56526; 57119; 57120; 57188; 57189; 57192; 62110; 62900; 70005

== ENCOUNTER 2018-07-20 19:18 | Inpatient (IN) | payer MEDICARE ==
[~2018-07-20] VITALS: Ht 172.7 cm; Wt 118.0 kg
--- NOTE | ~2018-07-20 | H ---
[facility] [place] [address] HISTORY AND PHYSICAL Name: AZALIA CAMERON Room #: 431-P ADM IN M.R.#: [id number] Admission: 07/20/18 Attend Phys: Evan Marks Discharge: Date of : 47 Report #: [id number] THIS REPORT FOR: //name// CC: Al Workman DATE OF SERVICE: 07/20/2018 CHIEF COMPLAINT: Abdominal pain. HISTORY OF PRESENT ILLNESS: The patient is a 73-year-old female transferred from [facility] facility for evaluation of her colostomy. She has had a chronic nonhealing decubitus wound and had a colostomy placed 3 weeks ago in order to promote wound healing and prevent stool contamination. She has been convalescing at [facility] with IV antibiotics, wound care and bed rest; however, in recent days, there has been concern of dysfunction of her colostomy with "retracting" and some signs of bleeding. She has been admitted for surgical evaluation. PAST MEDICAL HISTORY: Osteoarthritis of the knees, morbid obesity, cardiomyopathy, GERD, diabetes type 2. PAST SURGICAL HISTORY: She has had a cholecystectomy. FAMILY HISTORY: Noncontributory. SOCIAL HISTORY: Prior to this, she was living at home. No chronic alcohol or tobacco use. ALLERGIES: None. MEDICATIONS: Vitamin D, aspirin, Amaryl, Unasyn, Protonix, Lovenox, hydrocodone, Aldactone. REVIEW OF SYSTEMS: She denies headache, chest pain, shortness of breath, abdominal pain, nausea, vomiting, diarrhea, constipation, dysuria, syncope. OBJECTIVE: VITAL SIGNS: Temperature 37.2, pulse 89, respirations 18, blood pressure 140/62, O2 sat 96% on room air. GENERAL: She is awake and alert, in no distress. LUNGS: Clear. HEART: Regular. ABDOMEN: Soft, normoactive bowel sounds. Colostomy in the left quadrant. There is dark stool. EXTREMITIES: No cyanosis, clubbing or edema. NEUROLOGIC: Motor strength 3/5 throughout. [facility] [address] [place] [address] HISTORY AND PHYSICAL Name: AZALIA CAMERON Room #: [address] [place] [address] IN M.R.#: [id number] Admission: 07/20/18 Attend Phys: Evan Marks Discharge: Date of : 47 Report #: [id number] LABORATORY DATA: Hemoglobin is 9, potassium is 2.8. Urinalysis negative. ASSESSMENT: 1. Gastrointestinal bleed. 2. Colostomy malfunction. 3. Sacral decubitus wound. 4. Hypokalemia. 5. Anemia of chronic disease. 6. Osteoarthritis. 7. Cardiomyopathy. 8. Morbid obesity. 9. Severe protein-calorie malnutrition, albumin 1.6. PLAN: I will have Surgery Services see her as well as ID service. Potassium supplementation has been ordered. We will await surgical plans in regards to the colostomy. <ELECTRONICALLY SIGNED> By: Gary Sabillon MD 07/22/18 1042 [id number] Gary Sabillon MD /harshad
[~2018-07-20 19:18] MED LIST changes: +AMBIEN 5 MG TABL5 M1 PO; +HEPARIN SO5000 UNIT/ SUBQ; +IRON325 PO; +MUCINEX DM ER1 EAC1 PO; +NEURONTIN 300300 M1 PO; +UNASYN 3 GM VIAL3 G1 IVPB; +VOLTAREN GEL 1100 G1 TOP
[2018-07-20 19:23] VITALS: BP 159/65
[2018-07-20 20:12] VITALS: BP 122/77
[2018-07-20 21:14] VITALS: BP 149/66
[2018-07-20 21:56] LABS: ABSOLUTE NEUTROPHILS 5.8 thou/uL (1.4-8.2); BASOPHILS 0.3 % (0.0-2.0); EOSINOPHILS 1.6 % (0.0-3.0); HEMATOCRIT 27.4 % (37.0-47.0); LYMPHOCYTES 16.5 % (24.0-44.0); MCHC 32.9 g/dL (28.0-37.0); MCV 88.2 fL (80.0-100.0); MONOCYTES 11.3 % (1.0-8.0); PLATELET COUNT 610 thou/uL (150-400); POLYS 70.3 % (36.0-66.0); RBC 3.11 mil/uL (4.20-5.00); RDW 18.5 % (10.5-14.5); WBC 8.2 thou/uL (4.0-11.0)
[2018-07-20 21:57] LABS: URINE BILIRUBIN NEGATIVE (Negative); URINE BLOOD NEGATIVE (Negative); URINE CLARITY CLEAR; URINE COLOR YELLOW; URINE GLUCOSE-RANDOM* NEGATIVE (Negative); URINE KETONES NEGATIVE (Negative); URINE LEUKOCYTES-REFLEX NEGATIVE (Negative); URINE NITRITE-REFLEX NEGATIVE (Negative); URINE PROTEIN (DIPSTICK) NEGATIVE (Negative); URINE UROBILINOGEN 0.2 E.U./dl (0.2-1.0)
[2018-07-20 22:04] LABS: CALCIUM 8.8 mg/dL (8.5-10.1); CREATININE 0.7 mg/dL (0.6-1.0)
[2018-07-20 22:11] LABS: ALBUMIN 1.6 g/dL (3.4-5.0); TOTAL BILIRUBIN 0.4 mg/dL (<0.1-1.0); TOTAL PROTEIN 7.6 g/dL (6.4-8.2)
[2018-07-20 22:15] LABS: POTASSIUM 2.8 mmol/L (3.5-5.1)
[2018-07-20 22:40] VITALS: BP 153/68
[2018-07-21 04:00] VITALS: BP 140/62
[2018-07-21] MEDS ORDERED: PROTONIX40 M1 PO (04:02)
[2018-07-21] MEDS ORDERED: ENOXAPARIN40 MG/0.1 SUBQ (04:03)
[2018-07-21] MEDS ORDERED: HYDROCODON-ACE1 EAC5 PO (04:04)
[2018-07-21] MEDS ORDERED: ZOSYN 3.3753.375 GM IV (04:06)
[2018-07-21] MEDS ORDERED: ZYRTEC10 M5 PO (04:07)
[2018-07-21] MEDS ORDERED: POLYSACCHARIDE150 MG PO (04:07)
[2018-07-21 12:50] LABS: CALCIUM 8.3 mg/dL (8.5-10.1); CREATININE 0.7 mg/dL (0.6-1.0); POTASSIUM 3.1 mmol/L (3.5-5.1)
[2018-07-21 20:00] VITALS: BP 133/66
[2018-07-22 04:30] VITALS: BP 138/64
[2018-07-22 06:16] LABS: HEMATOCRIT 24.1 % (37.0-47.0); MCH 29.4 pg (26.0-34.0); MCHC 33.1 g/dL (28.0-37.0); MCV 88.7 fL (80.0-100.0); RBC 2.71 mil/uL (4.20-5.00); RDW 18.3 % (10.5-14.5); WBC 6.7 thou/uL (4.0-11.0)
[2018-07-22 06:40] LABS: CALCIUM 8.7 mg/dL (8.5-10.1); CREATININE 0.7 mg/dL (0.6-1.0); POTASSIUM 3.1 mmol/L (3.5-5.1)
[2018-07-22 08:45] VITALS: BP 150/73
[2018-07-22 17:34] VITALS: BP 126/48
[2018-07-22 18:51] LABS: CALCIUM 8.7 mg/dL (8.5-10.1); CREATININE 0.6 mg/dL (0.6-1.0); MAGNESIUM 1.6 mg/dL (1.8-2.4)
[2018-07-22 19:41] VITALS: BP 147/61
[2018-07-23 05:35] VITALS: BP 122/63
[2018-07-23 06:00] LABS: HEMATOCRIT 23.9 % (37.0-47.0); HEMOGLOBIN 7.9 gm/dL (12.0-15.0); MCH 29.4 pg (26.0-34.0); RBC 2.69 mil/uL (4.20-5.00); WBC 6.8 thou/uL (4.0-11.0)
[2018-07-23 06:10] LABS: CALCIUM 8.7 mg/dL (8.5-10.1); CREATININE 0.7 mg/dL (0.6-1.0); POTASSIUM 3.4 mmol/L (3.5-5.1)
[2018-07-23 07:40] VITALS: BP 135/51
[2018-07-23 10:39] VITALS: BP 135/51
[2018-07-23 19:59] VITALS: BP 146/52
[2018-07-24 08:20] VITALS: BP 142/62
[2018-07-24 19:48] VITALS: BP 149/65
[2018-07-25 04:55] VITALS: BP 149/58
[2018-07-25 08:45] VITALS: BP 120/95
[2018-07-25 09:30] VITALS: BP 149/58
[2018-07-25 19:34] VITALS: BP 131/61
[2018-07-26 03:42] VITALS: BP 109/60
[2018-07-26 07:24] VITALS: BP 140/63
[2018-07-26 11:36] VITALS: BP 140/63
[2018-07-26 15:28] VITALS: BP 128/47
[2018-07-26 20:00] VITALS: BP 144/57
[2018-07-27 04:30] VITALS: BP 127/72
[2018-07-27 08:16] VITALS: BP 141/55
== END 2018-07-27 13:46 | DRG 393 ==
LOC: ER 19:18 → 4E 20:39 → EROBS 20:39 → 4E 22:10
PROVIDERS: Emergency Medicine; Internal Medicine Geriatric Medicine
DX: K94.01 Colostomy hemorrhage (principal); L89.154 Pressure ulcer of sacral region, stage 4; E43 Unspecified severe protein-calorie malnutrition; I42.9 Cardiomyopathy, unspecified; M86.8X8 Other osteomyelitis, other site; K92.2 Gastrointestinal hemorrhage, unspecified; E11.69 Type 2 diabetes mellitus with other specified complication; K94.03 Colostomy malfunction; Y83.3 Surgical operation with formation of external stoma as the cause of abnormal reaction of the patient, or of later complication, without mention of misadventure at the time of the procedure; I10 Essential (primary) hypertension; L89.010 Pressure ulcer of right elbow, unstageable; E87.6 Hypokalemia; D63.8 Anemia in other chronic diseases classified elsewhere; K21.9 Gastro-esophageal reflux disease without esophagitis; M17.0 Bilateral primary osteoarthritis of knee; E66.01 Morbid (severe) obesity due to excess calories; Z68.39 Body mass index [BMI] 39.0-39.9, adult; Z90.49 Acquired absence of other specified parts of digestive tract; Z79.82 Long term (current) use of aspirin; Z79.899 Other long term (current) drug therapy; Y92.89 Other specified places as the place of occurrence of the external cause; Z83.3 Family history of diabetes mellitus; Z82.49 Family history of ischemic heart disease and other diseases of the circulatory system
CPT/HCPCS: 10084

== ENCOUNTER 2018-09-22 14:43 | Inpatient (IN) | payer MEDICARE ==
[~2018-09-22] VITALS: Ht 172.7 cm; Wt 117.0 kg
[2018-09-22 14:43] VITALS: BP 126/66
[~2018-09-22 14:43] MED LIST changes: +ENOXAPARIN40 MG/0.1 SUBQ; +HYDROCODON-ACE1 EAC5 PO; +POLYSACCHARIDE150 MG PO; +PROTONIX40 M1 PO; +ZOSYN 3.3753.375 GM IV; +ZYRTEC10 M5 PO
[2018-09-22 15:24] LABS: HEMATOCRIT 26.9 % (37.0-47.0); HEMOGLOBIN 8.8 gm/dL (12.0-15.0); MCH 26.1 pg (26.0-34.0); MCHC 32.7 g/dL (28.0-37.0); PLATELET COUNT 591 thou/uL (150-400); RBC 3.37 mil/uL (4.20-5.00); RDW 17.3 % (10.5-14.5)
[2018-09-22 15:30] LABS: CALCIUM 8.4 mg/dL (8.5-10.1); CREATININE 0.7 mg/dL (0.6-1.0)
[2018-09-22 15:36] LABS: TOTAL BILIRUBIN 0.3 mg/dL (<0.1-1.0); TOTAL PROTEIN 7.8 g/dL (6.4-8.2)
[2018-09-22 15:45] LABS: ABSOLUTE NEUTROPHILS 2.9 thou/uL (1.4-8.2); PLATELET ESTIMATE INCREASED
[2018-09-22] MEDS ORDERED: NORCO 10-325 T1 EACH PO (17:22)
[2018-09-22] MEDS ORDERED: GLUCOTROL5 MG PO (17:22)
[2018-09-22] MEDS ORDERED: SIMETHICON CHEW80 M1 PO (17:24)
[2018-09-22] MEDS ORDERED: VITAMINC500 PO (17:25)
[2018-09-22] MEDS ORDERED: ZINC30 MG PO (17:26)
[2018-09-22] MEDS ORDERED: MOBIC7.5 MG PO (17:28)
[2018-09-22 17:29] VITALS: BP 165/75
[2018-09-22 18:45] VITALS: BP 162/74
--- NOTE | 2018-09-23 04:12 | NUR ---
PT ARRIVED ON UNIT APPROX 1900. PT ALERT AND ORIENTED X4. EDUCATION PROVIDED, ADMISSION COMPLETED. PT LITTLE IN PLACE, ADEQUATE URINE OUTPUT. CHUCKS PAD TO COVER STOMA, MODERATE OUTPUT, CHUCKS PAD CHANGED FREQUENTLY. IV TO R WRIST AND R FOREARM. DRESSINGS C/D/I, NO SIGNS OF INFILTRATION. ABX THERAPY STARTED. PT REPORTS MODERATAE ABDOMINAL PAIN NEAR STOMA PT STATES "FEELS LIKE SOMTHING IS IN IT." PROVIDED PT WITH SPONGES FOR DRY MOUTH. PT CALL LIGHT AND PERSONAL BELONIGNS WITHIN REACH. WILL CONTINUE POC UNTIL EOS.
[2018-09-23 04:31] VITALS: BP 151/73
[2018-09-23 08:05] VITALS: BP 148/77
--- NOTE | 2018-09-23 10:34 | NUR ---
OSTOMY CONSULT: PT. HAS ECORATION AROUND HER STOMA ALONG WITH A SMALL ULCERATION TO LEFT LEFT. THE STOMA ITSELF IS RETRACTED AND A SMALL OF AMOUNT OF STOOL WAS VISIBLE. PT. REPORTS THAT THIS IS PAINFUL AND THE SITE HAS BEEN BURNING. THE MONISHA-STOMAL AREA WAS TREATED WITH SKIN PREP AND MARATHON AND THE ULCERATION WAS PACKED WITH 1/4 IODOFOAM PACKING. PT. REPORTS THAT THIS FEELS MUCH BETTER. 2 PIECE OSTOMY APPLIANCE WAS APPLIED.
--- NOTE | 2018-09-23 10:45 | NUR ---
ASSESSMENT-PT IS IN SKILLED REHAB AT [facility]. PT SAYS THEY USE A LIFT TO TRANSFER HER TO A . PT NEEDS ASSIST WITH HER ADLS. PT PLANS TO RETURN TO REHAB AT [facility] ONCE MEDICALY STABLE. CASE DISCUSSED WITH DR JUAN AND WITH JOAN WHO IS DOING OSTOMY AND WOUND CARE TODAY. FOLLOWING TO ASSIST WITH DC PLANNING.
--- NOTE | 2018-09-23 14:21 | NUR ---
Nutrition: pt admit with infected stoma and seen due to wound risk. Pt with hx of colostomy due to sacral ulcer. Usual appetite is good. Recent stable weights. Understands protein needs, assisted with ordering meals. Has used Sergio, ensure max in the past. Agrees to resume. Low risk with interventions in place.
[2018-09-23 15:20] VITALS: BP 133/66
--- NOTE | 2018-09-23 17:12 | NUR ---
WOUND CONSULT: PT. WAS SEEN TODAY BY DR. LEON AND MYSELF. PT. IS WELL KNOWN TO THE WOUND CARE TEAM. PT. HAS A RESOLVING STAGE 4 PRESSURE ULCER TO HER SACRUM. THERE ARE NO SIGNS OR SYMPTOMS ASSOCIATED WITH THIS WOUND AT THIS TIME. RECOMMENDATIONS: WOUND CARE TO SACRUM: GENTLY CLEANSE AREA WITH WOUND CLEANSER OR NORMAL SALINE, PACK WITH DAKIN MOIST KERLIX, COVER WITH ABD, SECURE WITH TAPE, COMPLETE CARES DAILY AND PRN. TURN Q2 HOURS KEEP PT. OFF WOUNDS MUCH POSSIBLE KEEP ON MIGUEL MATRESS. PT. AND STAFF NURSE WERE INSTRUCTED ON PLAN OF CARE.
[2018-09-23 19:09] VITALS: BP 126/64
[2018-09-24 03:13] VITALS: BP 130/74
--- NOTE | 2018-09-24 03:22 | NUR ---
Assumed care of pt at 1900. Pt alert and oriented x4. Q2h turn. Colostomy in place. Producing small formed stool. Grey catheter in place. Small bleeding noted from wound next to stoma. IV antibiotic administered. No c/o pain. Will continue to monitor.
[2018-09-24 09:16] VITALS: BP 140/77
[2018-09-24 21:11] VITALS: BP 147/76
--- NOTE | 2018-09-25 03:50 | NUR ---
Assumed care of pt at 1900. Pt alert and oriented x4. C/o left shoulder pain. Prn pain meds administered, relief obtained. Colostomy bag leaking. New bag applied. Q2h turn. Grey catheter in place. Call light within reach. Pt calls appropriately. Will continue to monitor.
[2018-09-25 04:02] VITALS: BP 148/92
[2018-09-25 08:58] VITALS: BP 154/89
[2018-09-25 17:13] VITALS: BP 153/79
--- NOTE | 2018-09-25 19:14 | NUR ---
ASSUMED PT CARE AT 0700H. PT A&O X4. PT HAS NO S/S OF DISTRESS. PT STATES NO PAIN AT THE TIME. PT HAD LEAK FORM COLOSTOMY. PT COLOSTOMY CHANGED AND ITS C/D/I/. PT TOLERATES MEDS AND MEALS. PT LITTEL INTACT. PT HAD VISITOR. PT CALLS APPROPRIATE. PT CONTINUES TO BE MONITORED Q2H TURN FOR SAFETY.
[2018-09-25 20:00] VITALS: BP 147/65
--- NOTE | 2018-09-26 02:05 | NUR ---
Assumed care of pt at 1900. Pt a&o x4. Q2h turn. Colostostomy bag leaking at start of shift. Colostomy bag replaced. Grey catheter in place. Pt c/o pain from sacral areal at start of shift. Prn pain med administered and relief obtained. Call light within reach. Will continue to monitor and assist with needs.
[2018-09-26 04:50] VITALS: BP 146/75
[2018-09-26 05:26] LABS: HEMATOCRIT 27.6 % (37.0-47.0); MCH 25.8 pg (26.0-34.0); MCHC 32.4 g/dL (28.0-37.0); MCV 79.4 fL (80.0-100.0); RBC 3.47 mil/uL (4.20-5.00); RDW 17.4 % (10.5-14.5); WBC 5.4 thou/uL (4.0-11.0)
[2018-09-26 05:30] LABS: ALBUMIN 2.1 g/dL (3.4-5.0); CALCIUM 9.1 mg/dL (8.5-10.1); CREATININE 0.7 mg/dL (0.6-1.0)
[2018-09-26 08:00] VITALS: BP 138/85
--- NOTE | 2018-09-26 11:24 | NUR ---
ASSESMENT COMPLETED. VSS. A/O. DENIES PAIN. NO NOTED SOA. NO NV. PT SITTING AT EDGE OF THE BED WILL CONT. TO MONITOR. COLOSTOMY APPLIANCE CHANGED BY WOUND NURSE. SIDNEY TO MARIANNE. WILL CONT. TO MONITOR.
--- NOTE | 2018-09-26 14:04 | NUR ---
Following for d/c planning needs. Reviewed chart and spoke with nurse and physician. Physician plans on pt returning to [facility] on Wednesday after having midline placed and coordination with surgery and infectious disease. Asked partner integration planner to contact [facility] to begin insurance authorization process for admission on Wednesday. Will remain available to assist as needed.
--- NOTE | 2018-09-26 14:13 | HC ---
[facility] [place] [address] CONSULTATION Name: AZALIA CAMERON Room #: 424-P ADM IN M.R.#: [id number] Admission: 09/22/18 ������������������ Attend Phys: Gerri Cabrera MD Discharge: ������������������ Date of : 47 Report #: [id number] THIS REPORT FOR: //name// CC: Al Cabrera DATE OF SERVICE: 09/23/2018 REASON FOR CONSULTATION: I was asked to evaluate concerning peristomal abscess. HISTORY OF PRESENT ILLNESS: The patient is a 73-year-old with known large sacral decubitus. She underwent a colostomy for fecal diversion. Subsequently, she has had retraction of the stoma. Developed increased pain, swelling to the left side. Admitted on 09/22/[address] scan showing air and inflammatory change in the soft tissues by the colostomy site. She has had pain in this region. A colostomy has been still functioning. No fever, chills or sweats. Her sacral wound has been healing. ALLERGIES: None known. MEDICATIONS: As noted on her OCT. Previously was on Unasyn, now on vancomycin and Zosyn. PAST MEDICAL AND SURGICAL HISTORY: Cholecystectomy, diabetes, hypertension, obesity, cardiomyopathy, gastroesophageal reflux, bilateral knee degenerative joint disease, colostomy on 07/01/2018, large decubitus ulcer with osteomyelitis of the sacrum and coccyx. FAMILY HISTORY: Diabetes, hypertension. SOCIAL HISTORY: Nonsmoker, no significant alcohol intake. REVIEW OF SYSTEMS: Denies any cough, sputum, nausea, vomiting. Has an indwelling Grey catheter. Peripheral IV in place. Has limited mobility due to her degenerative arthritis. Sacral decubitus. A 10-point review otherwise negative from what is described above. PHYSICAL EXAMINATION: VITAL SIGNS: Afebrile, hemodynamically stable. GENERAL: She is alert. She is cooperative, pleasant, no acute distress, lying in bed, obese, sacral decubitus was much smaller than previous with good granulation tissue. HEENT: No palpable adenopathy. EYES: Without conjunctivitis or scleral icterus. MOUTH: Without mucositis. NECK: Supple, without thyromegaly or mass. [facility] [address] [place] [address] CONSULTATION Name: AZALIA CAMERON Room #: 424-P ADM IN M.R.#: [id number] Admission: 09/22/18 ������������������ Attend Phys: Gerri Cabrera MD Discharge: ������������������ Date of : 47 Report #: [id number] LUNGS: Clear. HEART: Regular, without murmur. ABDOMEN: Midabdomen colostomy was retracted. She had erythema and tenderness mostly to the left around 3 o'clock. There was firmness in this region. Markedly tender. No other mass is identified. No hepatosplenomegaly. EXTREMITIES: Degenerative arthritis without edema, cyanosis or clubbing. RECTAL: Not performed. GENITOURINARY: External genitalia unremarkable with indwelling Grey catheter. NEUROLOGIC: Cranial nerves were intact. Strength in her upper and lower extremities appeared normal with sensation normal, both upper and lower extremities. LABORATORY STUDIES: Blood cultures were negative today. Lactate 1.1. CT scan of the abdomen as noted above. Hemoglobin 8.8, WBC 6.6, platelet count 591,000. Sodium 135, potassium 4, creatinine 0.7. Lipase 56. Liver function test normal. IMPRESSION: 1. Sacral decubitus with underlying osteomyelitis, having completed her IV antibiotic therapy showing good healing. 2. Peristomal abscess, now being drained and packed. This was discussed with wound care service. I am awaiting cultures. 3. Morbid obesity. 4. Degenerative arthritis and decreased mobility. RECOMMENDATION: We will continue IV antibiotic therapy with Zosyn. Continue wound care and manage ostomy as best we can at this point. ��������������������������������������������� <ELECTRONICALLY SIGNED> ���������������������������������������� By: Charles Workman MD ��������������������������������������������� 09/26/18 1413 1533 0500 Charles Workman MD /nt
--- NOTE | 2018-09-26 14:26 | NUR ---
WOUND FOLLOW UP: PT. WAS SEEN TODAY BY DR. LEON AND MYSELF. PT. WOUND IS CLINICALLY BETTER TODAY AND PT. IS IN GOOD SPIRITS. RECOMMENDATIONS: CONTINUE WITH PLAN OF CARE. PT. AND STAFF NURSE WERE INSTRUCTED ON PLAN OF CARE.
--- NOTE | 2018-09-26 14:27 | NUR ---
OSTOMY FOLLOW UP: PT. OSTOMY APPLIANCE WAS CHANGED TODAY. MONISHA-STOMA SKIN WAS CLINICALLY IMPROVED TODAY. LESS DRAIANGE FROM ULCERATION NEXT TO STOMA. PT. REPORTS LESS PAIN IN THIS REGION. RECOMMENDATIONS: CONTINUE WITH 2 PIECE POUCH SYSTEM CONVEX WAFFER WITH EAKINS RING PT. AND STAFF NURSE WERE INSTRUCTED ON PLAN OF CARE.
--- NOTE | 2018-09-26 14:47 | NUR ---
MIDLINE ORDERED- SPOKE TO TRAY FILLER AND UPDATED THAT IV ANTIBIOTICS WERE DISCONTINUED AND PO ANTIBIOTICS STARTED. STAFF NURSE WILL CLARIFY IF THERE IS A CONTINUED NEED FOR THE MIDLINE. LINE ON HOLD AT THIS TIME
--- NOTE | 2018-09-26 15:42 | NUR ---
FAXED CLINICAL UPDATE TO [facility] SPOKE WITH CANDICE IN ADM. AND SHE RECEIVED UPDATE AND WILL SUBMIT FOR AUTH. DCP TO FOLLOW.
[2018-09-26 17:18] VITALS: BP 136/74
[2018-09-26 19:28] VITALS: BP 128/64
--- NOTE | 2018-09-27 02:35 | NUR ---
PT C/O PAIN ON HER L SHOULDER,MANAGED WITH PO MED,EFFECTIVE.PT REPOSITIONED PER PT'S REQUEST.LITTLE TO DD.COLOSTOMY WITH BROWN LOOSE STOOL,INTACT.SCD'S IN PLACE.LOW AIR LOSS MATTRESS IN PLACE.PT LOOKING FORWARD TO BE DC'D LATER IN THE DAY.CALL LIGHT IN PLACE.
[2018-09-27 04:48] VITALS: BP 130/62
[2018-09-27 07:53] VITALS: BP 131/61
[2018-09-27] MEDS ORDERED: AUGMENTIN 875-1 EACH PO (10:03)
[2018-09-27] MEDS ORDERED: AMLODIPINE BESYL5 M1 PO (10:03)
[2018-09-27] MEDS ORDERED: NORCO 10-325 T1 EACH PO (10:04)
--- NOTE | 2018-09-27 14:12 | NUR ---
WOUND FOLLOW UP: PT. WAS SEEN TODAY BY DR. LEON AND MYSELF. PT. WOUND IS CLINICALLY BETTER AT THIS TIME. RECOMMENDATIONS: CONTINUE WITH CURRENT PLAN OF CARE. PT. AND STAFF NURSE WERE INSTRUCTED ON PLAN OF CARE.
--- NOTE | 2018-09-27 14:39 | NUR ---
patient was addmited in 09/22/18for infected stoma follow up peristomal infection VS was done Q8h patient is alerat and orainted X4 have an adequet apptite. Patient had pain on both knee, hydrocodon was addministered, patient felt better after pain med was administered. PT came and helped patient amubulateed to the side of the bed, patient sat on the bed side for about an hour and back to bed. wound nurse came and changed the wound and clean the ostomy bad.
--- NOTE | 2018-09-27 14:44 | NUR ---
I have reviewed and concur with student documentation.
--- NOTE | 2018-09-27 16:50 | NUR ---
NOTIFIED BY [facility] THAT [employer] IS DENYING SKILLED FOR PT. DENIAL LETTER TO BE SENT WITH P-P OPTION. WILL DISCUSS WITH DR AGUILAR.
[2018-09-27 19:32] VITALS: BP 127/54
--- NOTE | 2018-09-27 23:07 | NUR ---
PT C/O PAIN ON HER SHOULDER AND KNEES,MANAGED WITH MEDICATION,EFFECTIVE. COLOSTOMY WITH DARK BROWN LOOSE STOOL,INTACT.SACRAL WOUND DRSG INTACT.LITTLE TO DD WITH LIGHT YELLOW URINE NOTED.REPOSITIONED PER PT'S REQUEST.PT RESTING ON HER BED AT THIS TIME.CALL LIGHT WITHIN REACH.
[2018-09-28 07:38] VITALS: BP 143/76
--- NOTE | 2018-09-28 13:41 | NUR ---
CASE DISCUSSED WITH PT, DR AGUILAR AND WITH HER DIL LENNY AND ALL ARE INTERESTED IN APPEALLING SKILLED DENIAL. LETTER WRITTEN FOR DR AGUILAR AND GATHERED CLINICAL INFORMATION TO SUPPORT APPEAL FOR SNF AND THIS WAS FAXED TO [facility] [phone] AND ALSO TO [phone]. AWAITING RESPONSE BACK FROM [facility].
--- NOTE | 2018-09-28 14:32 | NUR ---
WOUND FOLLOW UP: PT. WAS SEEN TODAY BY DR. LEON AND MYSELF. PT. SACRAL WOUND IS CLINICALLY BETTER TODAY AND PT. IS IN GOOD SPIRITS. RECOMMENDATIONS: CONTINUE WITH CURRENT PLAN OF CARE. PT. AND STAFF NURSE WERE INSTRUCTED ON PLAN OF CARE.
--- NOTE | 2018-09-28 14:33 | NUR ---
OSTOMY FOLLOW UP: PT. OSTOMY APPLIANCE WAS CHANGED TODAY. ULCERATION IS HEALING WELL, EXCORATION AROUND THE MONISHA-STOMA AREA IS HEALING. PT. REPORTS THAT THE PAIN IS DECREASED. RECOMMENDATIONS: CONTINUE WITH CURRENT PLAN OF CARE. PT. AND STAFF NURSE WERE INSTRUCTED ON PLAN OF CARE.
[2018-09-28 15:50] VITALS: BP 137/57
--- NOTE | 2018-09-28 18:30 | NUR ---
PT ASSESSED AT START OF SHIFT. PT WOUNDS HEALING WELL PER WOUND CARE. PT TURNED Q2HRS. EATING AND DRINKING WELL. DANGLED ON SIDE OF BED W/ THERAPY. PAIN BETTER TODAY.
[2018-09-28 20:10] VITALS: BP 111/46
[2018-09-29 05:12] VITALS: BP 124/59
[2018-09-29 08:18] VITALS: BP 134/54
[2018-09-29 09:44] VITALS: BP 134/54
--- NOTE | 2018-09-29 10:08 | NUR ---
ASSESMENT COMPLETED. VSS. A/O. PAIN MANAGED BY MEDS ORDERED. NO NOTED SOA. NO NV. COLOSTOMY INTACT. NOTED ABSCESS COMING OUT ON LEFT SIFE OF APPLIANCE. SIDNEY TO MARIANNE. ANTICIPATING DC TO SNF TODAY. WILL CONT. TO MONITOR.
--- NOTE | 2018-09-29 14:17 | NUR ---
RECEIVED CALL FROM DAMASO DAVID FROM [facility] SAYING DENIAL WAS OVERTURNED AND THEY WILL APPROVE 14 MORE DAYS OF SKILLED CARE AT [facility]. NOTIFIED DC COST CONTROLLER TO ARRANGE TRANSFER TODAY. NOTIFIED DR AGUILAR OF THE ABOVE WELL. CHART COPY ORDERED. APPROVAL FOR SKILLED LETTER FAXED TO [facility].
--- NOTE | 2018-09-29 14:25 | NUR ---
PT. DISCHARGING TODAY TO [facility] FAXED DC ORDERS/SUMMARY TO FACILITY SPOKE WITH JODY IN ADM. NOTIFIED OF APPROVAL LETTER INCLUDED WITH DC ORDERS. SHE SET UP TRANSPORTATION VIA [facility] FOR 1600 TODAY. NOTIFIED DTR (MIGUEL ANGEL) OF DISCHARGE AND TRANSPORT TIME. UNIT NOTIFIED AND CHART COPY PER US. RN TO CALL REPORT TO [phone].
--- NOTE | 2018-09-29 15:46 | NUR ---
REPORT CALLED IN TO FACILTY. DRESSING TO BUTTOCK CHANGED. COLOSTOMY APPLIANCE CHANGED. IODOFORM PACKING APPLIED TO ABDOMINAL WOUND. WAITING FOR TRANSPORT.
--- NOTE | 2018-09-29 15:59 | NUR ---
WOUND FOLLOW UP: PT. WAS SEEN TODAY BY DR. LEON AND MYSELF. PT. DRESSING IS C/D/I AT THIS TIME AND PT. HAS NO COMPLAINTS. RECOMMENDATIONS: CONTINUE WITH CURRENT PLAN OF CARE. PT. AND STAFF NURSE WERE INSTRUCTED ON PLAN OF CARE.
--- NOTE | 2018-10-03 08:19 | HC ---
[facility] [place] [address] CONSULTATION Name: AZALIA CAMERON Room #: 424-P [facility] IN M.R.#: [id number] Admission: 09/22/18 ������������������ Attend Phys: Gerri Cabrera MD Discharge: 09/29/18 ������������������ Date of : 49 Report #: [id number] THIS REPORT FOR: //name// CC: Al Cabrera DATE OF SERVICE: 09/23/2018 CHIEF COMPLAINT: Possible abscess around the ostomy and stage 4 sacral gluteal pressure ulceration. HISTORY OF PRESENT ILLNESS: This is a 73-year-old female patient with whom I am familiar from prior hospitalization. The patient was admitted originally on 06/22/2018 with weakness. She was unable to get out of her car and it was left there for a couple of days and developed pressure ulcer to the right gluteal region. She underwent surgical debridement and ultimately a diverting colostomy. She has been managed for ongoing wound care and doing relatively well with improvement of the gluteal sacral pressure ulceration. She has been living at [facility], receiving an ongoing wound care. She developed some drainage and pain around her colostomy and has been admitted for further evaluation. The patient does complain of some pain and some bleeding at that site at this time. ALLERGIES: None. MEDICATIONS: Include Caltrate, Tylenol, Amaryl, Protonix, Lovenox, hydrocodone, acetaminophen, Aldactone, Glucotrol, simethicone, vitamin C and zinc. PAST MEDICAL AND SURGICAL HISTORY: Positive for diabetes mellitus, hypertension, previous cataract surgery both eyes, cardiomyopathy, gastroesophageal reflux, obesity, bilateral knee degenerative joint disease. She had colostomy placed on 07/01/2018, debridement of right gluteal sacral pressure ulceration in 06/2018. SOCIAL HISTORY: She is negative for alcohol or tobacco use ever. FAMILY HISTORY: Positive for diabetes and hypertension. REVIEW OF SYSTEMS: CONSTITUTIONAL: The patient denies fever, chills or weight loss. NEUROLOGICAL: The patient denies focal weakness, numbness or tingling. EYES: The patient denies visual changes, redness or drainage. ENT: The patient denies earache, nasal drainage, sore throat. CARDIOVASCULAR: The patient denies chest pain, palpitations or diaphoresis. PULMONARY: The patient denies cough or shortness of breath. GASTROINTESTINAL: The patient complains of pain in her abdomen with bleeding [address] [place] [address] CONSULTATION Name: AZALIA CAMERON Room #: 424-P [facility] IN M.R.#: [id number] Admission: 09/22/18 ������������������ Attend Phys: Gerri Cabrera MD Discharge: 09/29/18 ������������������ Date of : 49 Report #: [id number] and tenderness around the colostomy. GENITOURINARY: The patient denies frequency or urgency of urination. ORTHOPEDIC: The patient does note some pain in her right knee as well as the sacral gluteal region. Other systems in a 14-point review of systems are negative. PHYSICAL EXAMINATION: VITAL SIGNS: At this time include temperature 98.1, pulse 91, respiratory rate 20, temperature was 130/74. GENERAL: This is a chronically ill-appearing female patient, who appears to be in no distress. HEENT: Head normocephalic. Nose and throat clear. NECK: Supple. LUNGS: Clear. HEART: Regular rhythm. ABDOMEN: Obese, soft. It is tender in the peristomal region. There is a small abscess with some bleeding and this tunnels approximately 6-7 cm in a cephalad direction. There is some purulent material that is expressed. I then packed the small drainage tract with iodoform gauze. Examination of the sacral gluteal ulceration demonstrates that it is much smaller still cleaner granulating and livia. NEUROLOGIC: The patient is alert, does move all 4 extremities. LABORATORY DATA: Sodium 135, potassium 4.0, chloride 100, CO2 27, BUN 7, creatinine 0.7, glucose 182. White blood cell count 6.0 with hemoglobin of 8.8. CLINICAL IMPRESSION: 1. Peristomal abscess, which is spontaneously draining. 2. Retracted colostomy, remains functional. 3. 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 4. Degenerative arthritis of the right knee. 5. Diabetes mellitus. 6. Morbid obesity. RECOMMENDATIONS: At this point in time, we will use quarter strength Dakin's moist gauze packing to the gluteal sacral ulceration. She will be placed on a low air loss mattress, q. 2-hour turning and repositioning. PRAFO boots for pressure prophylaxis while in bed. I think that we can pack the wound with iodoform gauze at present. Her sacral gluteal wound is closed to resolution. I think if we could maintain her colostomy for a little bit longer until we get good closure there and then consider reversing the colostomy at that time rather than considering revision at this time would be appropriate. The patient is [facility] [address] [place] [address] CONSULTATION Name: AZALIA CAMERON Room #: 424-P [facility] IN M.R.#: [id number] Admission: 09/22/18 ������������������ Attend Phys: Gerri Cabrera MD Discharge: 09/29/18 ������������������ Date of : 49 Report #: [id number] agreeable to that plan. We will continue with aggressive nutritional support. I appreciate being asked to see her in consultation. ��������������������������������������������� <ELECTRONICALLY SIGNED> ���������������������������������������� By: Oswald Romero MD ��������������������������������������������� 10/03/18 0819 1113 [id number] Oswald Romero MD /nt
== END 2018-09-29 19:42 | DRG 393 ==
LOC: ER 14:43 → EROBS 17:02 → 4E 17:02
PROVIDERS: Emergency Medicine; Internal Medicine; ADMIT Internal Medicine
DX: K94.02 Colostomy infection (principal); L89.154 Pressure ulcer of sacral region, stage 4; L02.211 Cutaneous abscess of abdominal wall; I42.9 Cardiomyopathy, unspecified; M46.28 Osteomyelitis of vertebra, sacral and sacrococcygeal region; K92.2 Gastrointestinal hemorrhage, unspecified; L03.311 Cellulitis of abdominal wall; K94.01 Colostomy hemorrhage; E11.69 Type 2 diabetes mellitus with other specified complication; I10 Essential (primary) hypertension; K21.9 Gastro-esophageal reflux disease without esophagitis; M17.0 Bilateral primary osteoarthritis of knee; E66.01 Morbid (severe) obesity due to excess calories; M19.90 Unspecified osteoarthritis, unspecified site; E11.40 Type 2 diabetes mellitus with diabetic neuropathy, unspecified; L89.010 Pressure ulcer of right elbow, unstageable; Z90.49 Acquired absence of other specified parts of digestive tract; Z98.42 Cataract extraction status, left eye; Z98.41 Cataract extraction status, right eye; Z68.39 Body mass index [BMI] 39.0-39.9, adult; Z82.49 Family history of ischemic heart disease and other diseases of the circulatory system; Z83.3 Family history of diabetes mellitus; Z79.82 Long term (current) use of aspirin; Z79.899 Other long term (current) drug therapy; Y83.3 Surgical operation with formation of external stoma as the cause of abnormal reaction of the patient, or of later complication, without mention of misadventure at the time of the procedure
CPT/HCPCS: 10084

== ENCOUNTER 2018-10-13 11:11 | Emergency (ER) | payer MEDICARE ==
[~2018-10-13] VITALS: Ht 172.7 cm; Wt 116.6 kg
[~2018-10-13 11:11] MED LIST changes: +AMLODIPINE BESYL5 M1 PO; +AUGMENTIN 875-1 EACH PO; +GLUCOTROL5 MG PO; +MOBIC7.5 MG PO; +NORCO 10-325 T1 EACH PO; +SIMETHICON CHEW80 M1 PO; +VITAMINC500 PO; +ZINC30 MG PO
[2018-10-13 12:25] LABS: ABSOLUTE NEUTROPHILS 5.1 thou/uL (1.4-8.2); BASOPHILS 0.4 % (0.0-2.0); EOSINOPHILS 2.8 % (0.0-3.0); HEMATOCRIT 31.8 % (37.0-47.0); HEMOGLOBIN 10.2 gm/dL (12.0-15.0); LYMPHOCYTES 27.8 % (24.0-44.0); MCH 26.2 pg (26.0-34.0); MONOCYTES 8.5 % (1.0-8.0); POLYS 60.5 % (36.0-66.0); RBC 3.88 mil/uL (4.20-5.00); RDW 19.2 % (10.5-14.5); WBC 9.2 thou/uL (4.0-11.0)
[2018-10-13 12:29] LABS: CALCIUM 9.2 mg/dL (8.5-10.1); CREATININE 0.6 mg/dL (0.6-1.0); POTASSIUM 4.6 mmol/L (3.5-5.1)
[2018-10-13 12:37] LABS: ALBUMIN 2.3 g/dL (3.4-5.0); TOTAL BILIRUBIN 0.6 mg/dL (<0.1-1.0); TOTAL PROTEIN 4.2 g/dL (6.4-8.2)
[2018-10-13] MEDS ORDERED: NEURONTIN 400400 M1 PO (13:13)
[2018-10-13] MEDS ORDERED: PROBIOTIC1 EAC1 PO (13:16)
[2018-10-13] MEDS ORDERED: IRON325 PO (13:18)
[2018-10-13] MEDS ORDERED: GLUCOSE15 GM/59 M PO (13:18)
[2018-10-13] MEDS ORDERED: UNICOMPLEX M TA1 TA1 PO (13:19)
[2018-10-13] MEDS ORDERED: MOBIC7.5 MG PO (13:19)
[2018-10-13] MEDS ORDERED: NORCO 10-325 T1 EACH PO (13:20)
[2018-10-13] MEDS ORDERED: MILK OF MA2400 MG/11 PO (13:22)
[2018-10-13] MEDS ORDERED: BISACODYL SUPP10 MG RECTAL (13:23)
[2018-10-13 13:44] LABS: PLATELET COUNT 335 thou/uL (150-400)
[2018-10-13 18:20] VITALS: BP 122/65
[2018-10-14] MEDS ORDERED: AUGMENTIN 875-1 EACH PO (15:46)
== END 2018-10-13 18:58 | disposition home or self-care (01) ==
LOC: ER 11:11
PROVIDERS: Physician Assistant
DX: K63.2 Fistula of intestine (principal); I10 Essential (primary) hypertension; E11.9 Type 2 diabetes mellitus without complications; I42.9 Cardiomyopathy, unspecified; K21.9 Gastro-esophageal reflux disease without esophagitis; M17.0 Bilateral primary osteoarthritis of knee; E66.9 Obesity, unspecified; Z68.39 Body mass index [BMI] 39.0-39.9, adult; Z48.01 Encounter for change or removal of surgical wound dressing; Z90.49 Acquired absence of other specified parts of digestive tract

== ENCOUNTER 2018-10-14 12:29 | Emergency (ER) | payer MEDICARE ==
[~2018-10-14] VITALS: Ht 172.7 cm; Wt 116.6 kg
[~2018-10-14 12:29] MED LIST changes: +BISACODYL SUPP10 MG RECTAL; +GLUCOSE15 GM/59 M PO; +MILK OF MA2400 MG/11 PO; +NEURONTIN 400400 M1 PO; +PROBIOTIC1 EAC1 PO; +UNICOMPLEX M TA1 TA1 PO
[2018-10-14 14:01] LABS: ABSOLUTE NEUTROPHILS 2.9 thou/uL (1.4-8.2); BASOPHILS 0.7 % (0.0-2.0); EOSINOPHILS 3.6 % (0.0-3.0); HEMATOCRIT 30.6 % (37.0-47.0); HEMOGLOBIN 9.8 gm/dL (12.0-15.0); LYMPHOCYTES 33.6 % (24.0-44.0); MCH 26.1 pg (26.0-34.0); MCHC 32.2 g/dL (28.0-37.0); MCV 81.3 fL (80.0-100.0); MONOCYTES 9.3 % (1.0-8.0); PLATELET COUNT 407 thou/uL (150-400); POLYS 52.8 % (36.0-66.0); RBC 3.76 mil/uL (4.20-5.00); RDW 18.5 % (10.5-14.5); WBC 5.4 thou/uL (4.0-11.0)
[2018-10-14 14:19] LABS: CALCIUM 9.3 mg/dL (8.5-10.1); CREATININE 0.6 mg/dL (0.6-1.0); POTASSIUM 3.8 mmol/L (3.5-5.1)
[2018-10-14 14:23] LABS: ALBUMIN 2.5 g/dL (3.4-5.0); TOTAL BILIRUBIN 0.4 mg/dL (<0.1-1.0); TOTAL PROTEIN 8.5 g/dL (6.4-8.2)
[2018-10-14] MEDS ORDERED: AUGMENTIN 875-1 EACH PO (15:46)
[2018-10-14 18:30] VITALS: BP 117/56
== END 2018-10-14 18:34 | disposition home or self-care (01) ==
LOC: ER 12:29
PROVIDERS: Physician Assistant
DX: K94.09 Other complications of colostomy (principal); Y83.8 Other surgical procedures as the cause of abnormal reaction of the patient, or of later complication, without mention of misadventure at the time of the procedure; K63.2 Fistula of intestine; E11.9 Type 2 diabetes mellitus without complications; I10 Essential (primary) hypertension; K21.9 Gastro-esophageal reflux disease without esophagitis; E66.9 Obesity, unspecified; Z90.49 Acquired absence of other specified parts of digestive tract

== ENCOUNTER 2018-10-24 11:52 | Inpatient (IN) | payer MEDICARE ==
[~2018-10-24] VITALS: Ht 172.7 cm; Wt 118.3 kg
[2018-10-24 11:53] VITALS: BP 143/75
[2018-10-24 13:58] LABS: ABSOLUTE NEUTROPHILS 2.7 thou/uL (1.4-8.2); BASOPHILS 0.7 % (0.0-2.0); HEMATOCRIT 31.9 % (37.0-47.0); HEMOGLOBIN 10.1 gm/dL (12.0-15.0); LYMPHOCYTES 39.1 % (24.0-44.0); MCH 25.7 pg (26.0-34.0); MCHC 31.6 g/dL (28.0-37.0); MCV 81.4 fL (80.0-100.0); MONOCYTES 8.9 % (1.0-8.0); PLATELET COUNT 512 thou/uL (150-400); POLYS 47.3 % (36.0-66.0); RBC 3.92 mil/uL (4.20-5.00); RDW 19.7 % (10.5-14.5); WBC 5.8 thou/uL (4.0-11.0)
[2018-10-24 14:02] LABS: CALCIUM 9.1 mg/dL (8.5-10.1); CREATININE 0.7 mg/dL (0.6-1.0); POTASSIUM 3.9 mmol/L (3.5-5.1)
[2018-10-24 14:07] LABS: ALBUMIN 2.6 g/dL (3.4-5.0); TOTAL BILIRUBIN 0.4 mg/dL (<0.1-1.0); TOTAL PROTEIN 8.6 g/dL (6.4-8.2)
[2018-10-24 14:29] LABS: ANISOCYTOSIS 1+
[2018-10-24 17:38] VITALS: BP 128/68
[2018-10-24 18:16] VITALS: BP 125/97
[2018-10-24 19:15] VITALS: BP 144/73
--- NOTE | 2018-10-24 19:40 | NUR ---
Received pt from the ER, alert and oriented x 4. Transferred the pt from cart to bed. IV line and FC patent, fc draining light yellow urine. Pt verbalized she has chronic pain on her knees but bearable at this moment. VS stable, colostomy needs to be changed awaiting the ostomy cart to be delivered. Cleaned surroundin area. Currently on clear liquids, to be NPO at midnight for procedure noel with Dr. Morgan. Endorsed to the night nurse.
[2018-10-25 04:43] VITALS: BP 121/56
--- NOTE | 2018-10-25 04:48 | NUR ---
Pt. rested quietly at intervals during the night when checked on during frequent rounds. She c/o pain to her bilateral knees and po pain meds given (see emar) with some relief of pain noted. Colostomy bag changed due to leakage. Skin around stoma is broken down in some areas,irritated and red. Bed alarm is on.
[2018-10-25 08:30] VITALS: BP 154/72
--- NOTE | 2018-10-25 09:28 | NUR ---
Nutrition: Admitted for enterocutaneous fistula, seen for high nutritional risk. Hx of DM, htn. Colostomy 2017 due to sacral wound which has since healed. NPO for colostomy reversal. Appetite has been good with 50% intake. Gets full quickly. Wt stable x3 months around 260 lbs. Explained menu for when diet advances. Pt would like diabetic diet education. Will f/u with education after surgery. Otherwise low nutrition risk.
--- NOTE | 2018-10-25 09:30 | NUR ---
cm visited with pt and daughter adam prior to going to surgery today. intro to cm, transition of care, home health, and post acute. pt is a & o x 3, and able to make her needs know. " before jun 2018, live with daughter adam and was self sufficient. then with wound had to have debrib and go to [facility]. now at rehab for about 1-1 1/2 at [facility]. they use lift to transfer me and use wc there. 4 steps to enter home, have rollator and cane.". loco and adam. will cont following as needed for dc needs
--- NOTE | 2018-10-25 18:21 | NUR ---
ASSUMED CARE AT 0700. SURGERY TODAY AT 10OO. RETURNED TO FLOOR 1545. PAIN MANAGED WITH MEDS, VSS. MID LINE INCISION WITH PREVENO INPLACE. PT SLEEPY AND AWAKENS EASILY. FLUIDS AND ANTIBIOTIC STARTED ORDERED. CONTINUE TO MANAGE PAIN WITH MEDICATIONS AND BEGINING TO HAVE SOME RELIEF. CALL LIGHT IN REACH.
[2018-10-25 19:19] VITALS: BP 158/75
[2018-10-26 05:43] LABS: ABSOLUTE NEUTROPHILS 11.5 thou/uL (1.4-8.2); BASOPHILS 0.1 % (0.0-2.0); HEMATOCRIT 29.3 % (37.0-47.0); HEMOGLOBIN 9.4 gm/dL (12.0-15.0); LYMPHOCYTES 10.1 % (24.0-44.0); MCH 25.9 pg (26.0-34.0); MCV 80.9 fL (80.0-100.0); PLATELET COUNT 469 thou/uL (150-400); POLYS 80.8 % (36.0-66.0); RBC 3.62 mil/uL (4.20-5.00); RDW 19.5 % (10.5-14.5); WBC 14.2 thou/uL (4.0-11.0)
[2018-10-26 06:05] LABS: CALCIUM 8.1 mg/dL (8.5-10.1); POTASSIUM 4.1 mmol/L (3.5-5.1)
--- NOTE | 2018-10-26 07:48 | NUR ---
progress pt alert ad oriented. rating pain a 13 on assessment, morphine and hydrocodone given with little effect. phone call to and morphine dc'd and fentanyl 25mcg ordered given with better effect. ivf's infusing as ordered, taking ice chips sparingly denies nausea. weeks cather draining adequate amounts of yellow urine. continue to monitor
[2018-10-26 08:00] VITALS: BP 126/68
[2018-10-26 15:00] VITALS: BP 140/68
--- NOTE | 2018-10-26 15:43 | NUR ---
ASSUMED CARE 0700. PAIN MANAGED WITH MEDITCATIONS. VSS, POOR URIN OUTPUT WITH CATHETER AND DENIES FLATULENCE OR BM WHICH SURGERY PHYSICIAN IS AWARE OF AT THIS TIME. PARTICIPATED IN PT/OT TODAY. CONTINUE TO TOLERATE ICE CHIPS. FALL PRECAUTIONS IN PLAC.
--- NOTE | 2018-10-26 17:45 | NUR ---
WOUND CONSULT: PT. WAS SEEN TODAY BY DR. LEON AND MYSELF. PT. IS WELL KNOWN TO THE WOUND CARE TEAM. PT. HAS A HEALING STAGE 4 PRESSURE ULCER TO HER SACRUM. PT. HAD A COLOSTOMY TAKE DOWN YESTERDAY IN THE OR AND CURRENTLY HAS A PREVENA IN PLACE. RECOMMENDATIONS: LEAVE PREVENA TO MIDLINE ABDOMEN. WOUND CARE TO SACRUM: GENTLY CLEANSE AREA, APPLY FOAM, COMPLETE CARES DAILY AND PRN. PT. AND STAFF NURSE WERE INSTRUCTED ON PLAN OF CARE.
[2018-10-26 19:40] VITALS: BP 151/67
[2018-10-27 07:31] VITALS: BP 146/76
--- NOTE | 2018-10-27 07:49 | NUR ---
PROGRESS PT A/O X4, RATING PAIN TO ABDOMEN A 7 TO 8 TAKING FENTANYL Q4HRS PRN AND HYDROCODONE WITH SOME EFFECT PT SLEEPS AFTER. TOLERATING ICE CHIPS AND SMALL SIPS OF WATER WITHOUT DIFFICULTY, LITTLE INTACT DRAINING DARK YELLOW URINE, HAD TWO SMALL INCONTINENT STOOLS THROUGHOUT NIGHT. IVF'S INFUSING ORDERED CONTINUE POC.
--- NOTE | 2018-10-27 12:09 | NUR ---
ASSUMED CARE 0700. ALERT X3 WITH FORGETFULNESS. PAIN MANAGED WITH MEDICATIONS. BS STABLE AT THIS TIME. NIGHT NURSE PREPORTED PT HAD SMALL BM, NO BM AT THIS TIME. BELLY SOFT AND BOWEL SOUNDS ACTIVE. SEEN BY DR ROBERTS AND DR AGUILAR THIS MORNING. DIET ADVANCED TO CLEAR LIQUID DIET. DECLIND REPOSTIONING AT THIS TIME DUE TO ABD PAIN. FALL PRECAUTIONS IN PLACE. LITTLE PATENT. CALL LIGHT IN REACH.
--- NOTE | 2018-10-27 12:32 | NUR ---
on-going assessment: cm REVIEWED CHART AND MET WITH PATIENT AT THE BEDSIDE. PT IS POD 1 S/P COLOSTOMY REVERSAL. PT ALSO HAS STAGE 4 DECUBITIS ULCER. PT CAME IN FROM [facility]. CM REQUESTED THAT [employer] PROF[employer] FAX REFERRAL TO [facility] WILL PATIENT WILL LIKELY RETURN ONCE MEDICALLY STABLE IF INSURANCE APPROVES. PT IS BEING STARTED ON CLEAR LIQUID DIET AND AWAITING FOR BOWEL FUNCTION. CM WILL CONTINUE TO FOLLOW TO ASSIST NEEDED.
--- NOTE | 2018-10-27 12:45 | NUR ---
bryce sent initial referral to [facility]. . Patient likely to discharge in 1 to 2 days.
[2018-10-27 13:01] VITALS: BP 148/70
--- NOTE | 2018-10-27 15:13 | NUR ---
WOUND FOLLOW UP: PT. WAS SEEN TODAY BY DR. LEON AND MYSELF. PT. WOUNDS ARE STABLE AT THIS TIME. RECOMMENDATIONS: CONTINUE WITH CURRENT PLAN OF CARE. PT. AND STAFF NURSE WERE INSTRUCTED ON PLAN OF CARE.
[2018-10-27 15:31] VITALS: BP 141/66
[2018-10-27 19:15] VITALS: BP 132/70
[2018-10-28 04:25] LABS: CALCIUM 8.2 mg/dL (8.5-10.1); CREATININE 0.6 mg/dL (0.6-1.0); POTASSIUM 3.6 mmol/L (3.5-5.1)
[2018-10-28 04:40] LABS: HEMATOCRIT 26.5 % (37.0-47.0); HEMOGLOBIN 8.7 gm/dL (12.0-15.0); MCH 26.5 pg (26.0-34.0); MCV 80.4 fL (80.0-100.0); RBC 3.3 mil/uL (4.20-5.00); RDW 19.7 % (10.5-14.5); WBC 9.3 thou/uL (4.0-11.0)
--- NOTE | 2018-10-28 04:42 | NUR ---
Pt. rested quietly at intervals during the night when checked on during frequent rounds. She c/o abdominal pain and iv fentanyl given (see emar) with no relief. Po hydrocodone given (see emar) with some relief of pain noted. Provena dressing to abdomen is dry and intact. No c/o nausea. Pt. turned and repositioned during the night. Bed alarm is on.
[2018-10-28 07:20] VITALS: BP 128/74
[2018-10-28 07:21] VITALS: BP 128/74
--- NOTE | 2018-10-28 08:25 | HC ---
[facility] [place] [address] CONSULTATION Name: AZALIA CAMERON Room #: 451-P ADM IN M.R.#: [id number] Admission: 10/24/18 ������������������ Attend Phys: Gerri Cabrera MD Discharge: ������������������ Date of : 47 Report #: [id number] THIS REPORT FOR: //name// CC: Gerri Cabrera DATE OF SERVICE: 10/24/2018 CHIEF COMPLAINT: Gluteal pressure ulceration and colostomy abscess. HISTORY OF PRESENT ILLNESS: This is a 73-year-old female patient with a history of a large sacral gluteal pressure ulceration that required diverting colostomy. 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 She has nearly healed. She is brought in for takedown of the colostomy and the fistula and we will continue to see her for ongoing wound care. She denies significant pain at this time. PAST MEDICAL HISTORY: Positive for diabetes mellitus, hypertension, cardiomyopathy, gastroesophageal reflux disease, morbid obesity, immobility, stage 4 gluteal sacrococcygeal pressure ulceration. ALLERGIES: None. MEDICATIONS: Include calcium carbonate, glimepiride, ascorbic acid, gabapentin, lactobacillus, dextrose, ferrous sulfate, meloxicam, hydrocodone, spironolactone, amlodipine, diclofenac. SOCIAL HISTORY: Negative for alcohol or tobacco use. FAMILY HISTORY: Diabetes and hypertension. REVIEW OF SYSTEMS: CONSTITUTIONAL: The patient denies fever, chills or weight loss. NEUROLOGIC: The patient denies focal weakness, numbness or tingling. EYES: The patient denies visual changes, redness or drainage. ENT: The patient denies earache, nasal drainage or sore throat. CARDIOVASCULAR: The patient denies chest pain, palpitation or diaphoresis. PULMONARY: The patient denies cough or shortness of breath. GASTROINTESTINAL: The patient complains of abdominal discomfort and retraction of her stoma, denies vomiting or diarrhea. GENITOURINARY: The patient denies frequency or urgency of urination. Denies dysuria. ORTHOPEDIC: The patient does note that she has pressure ulceration that is much improved. Other systems in a 14-point review of systems are negative. PHYSICAL EXAMINATION: [facility] [address] [place] [address] CONSULTATION Name: AZALIA CAMERON Room #: 451-P [facility] IN M.R.#: [id number] Admission: 10/24/18 ������������������ Attend Phys: Gerri Cabrera MD Discharge: ������������������ Date of : 47 Report #: [id number] VITAL SIGNS: Temperature is 36.4, pulse rate 98, respiratory of 18, blood pressure 143/75. GENERAL: This is a chronically ill-appearing female patient who appears to be in minimal distress. HEENT: Head is normocephalic. Nose and throat are clear. NECK: Supple. LUNGS: Clear. HEART: Regular rhythm. ABDOMEN: Soft. Bowel sounds present. There is a colostomy that is retracted. There are 2 areas of peristomal fistulae. It is not overtly infected. Gluteal sacral region demonstrates the previous stage 4 pressure ulceration that is now almost completely closed with a very small area that remains open. There is no exposure of any deep structures. No bony exposure involvement. The base is healthy, clean, granulating and certainly significantly contracted. NEUROLOGIC: The patient is alert, oriented, appropriate. CLINICAL IMPRESSION: 1. Stage 4 pressure ulcer of the sacrococcygeal region and gluteal region, now mostly resolved. 2. Status post diverting colostomy with retraction of the stoma and colocutaneous fistulae. 3. Diabetes mellitus. 4. Morbid obesity. RECOMMENDATIONS: At this point in time, the patient is scheduled for revision surgery to take down the colostomy. We will continue with local care with a simple foam based dressing to the pressure ulceration. We will continue with aggressive nutritional support to maintain wound healing and optimize glycemic control. Continue with mobility and physical therapy. I appreciate being asked to see her again in consultation. ��������������������������������������������� <ELECTRONICALLY SIGNED> ���������������������������������������� By: Oswald Romero MD ��������������������������������������������� 10/28/18 0825 1541 [id number] Oswald Romero MD /nt
--- NOTE | 2018-10-28 10:17 | NUR ---
DISCHARGE PLANNING. POST ACUTE CARE RECOMMENDED. REFERRAL FAXED TO [facility] FOR DISCHARGE NEEDS YESTERDAY AFTERNOON. CALL PLACED TO [facility], SPOKE WITH ISABELL. STATES INSURANCE AUTH HAS BEEN OBTAINED. UNIT CM NOTIFIED. WILL NOTIFY ATTENDING PHYSICIAN. FOLLOWING TO ASSIST WITH DISCHARGE NEEDS.
--- NOTE | 2018-10-28 11:08 | PATH ---
[facility] [place] [address] PATHOLOGY RPT PROCEDURE Name: AZALIA STERN Room #: 451-P ADM IN M.R.#: [id number] ������������������ Admission: 10/24/18 ������������������ Date of : 49 Discharge: Report #: [id number] Path Case #: [id number] [facility] Accession Number: [id number] . 01 Material submitted: . PART A: SEGMENT OF TRANSVERSE COLON PART B: COLOSTOMY PART C: ABDOMINAL WALL DEBRIDEMENT . 01 Clinical history: . Retracted colostomy . 02 Diagnosis: A. Large intestine, segment of transverse colon, resection: - Large intestine with reactive changes as well as focal acute and chronic inflammation. - Negative for dysplasia or malignancy. - Margins (stapled margins) unremarkable. . B. Colostomy, reversal: - Ulcerated surface associated with marked acute inflammation and granulation tissue, consistent with colostomy site. - Adjacent squamous epithelium showing reactive changes. - Segments of large intestine showing reactive hyperplastic changes. . C. Abdominal wall debridement: - Fragments with marked acute and chronic inflammation, fat necrosis, abscess formation as well as fibrinoid degeneration, consistent with debridement tissue. (IUV/db; 10/27/2018) LBQ/10/27/2018 . 02 Electronically signed: . Nurys Gupta MD, Pathologist NPI- [id number] . 01 Gross description: . A. The specimen is received in formalin, labeled "Azalia Stern, segment of transverse colon" and consists of an unoriented segment of colon measuring 5.8 cm in length and up to 3.4 cm in diameter. One margin is closed with neema and the other aspect present as a blind pouch. Pericolic tissue lines the entire specimen up to 3.0 cm. Opening reveals a pink-vega mucosa with no polyps or mass lesions. This is separately is a second unoriented segment of colon measuring 2.5 cm in length and up to 3.0 cm in diameter which is closed by a line of neema. The opposite end presents as a blind pouch. Opening reveals a pink-vega mucosa with no polyps or mass lesions. Finance And Administration Manager sections are submitted as follows: [address] [address] PATHOLOGY RPT PROCEDURE Name: AZALIA STERN Room #: 451-P [facility] IN M.R.#: [id number] ������������������ Admission: 10/24/18 ������������������ Date of : 49 Discharge: Report #: [id number] Path Case #: [id number] . A1: First described segment margin A2: First described segment event sales representative section A3: Second described segment margin A4: Second described segment event sales representative section . B. The specimen is received in formalin, labeled "Azalia Stern, colostomy" and consists of a ragged and disrupted segment of gastrointestinal tissue measuring 5.8 x 4.0 x 1.8 cm. The specimen is encased with firm yellow-pink tissue which measures up to 2.2 cm thick. A segment of kingston-vega and possibly abscessed skin is present measuring 3.8 x 1.0 cm which displays a patent os measuring 0.5 cm. Opening reveals a pink-vega and partially ragged mucosa with no mass lesions. Finance And Administration Manager sections are submitted in B1-B2. . C. The specimen is received in formalin, labeled "Azalia Stern, abdominal wall debridement" and consists of 3 necrotic segment of yellow-orange tissue with a small amount of overlying pink-vega skin measuring 5.1 x 2.4 x 0.9 cm in aggregate. Finance And Administration Manager sections are submitted in C1. (SDY; 10/25/2018) SYU/SYU . 02 Pathologist provided ICD-10: K52.9, K63.9, L02.211 . 02 CPT . 901222, 958253, 665321 Specimen Comment: A courtesy copy of this report has been sent to Specimen Comment: [phone], . Specimen Comment: Report sent to / DR AGUILAR Specimen Comment: A duplicate report has been generated due to demographic updates. Performed at: [address], [place] [id number] MD Michael Ray MD Phone: [phone] Performed at: [address] [id number] MD Nurys Gupta MD Phone: [phone]
--- NOTE | 2018-10-28 15:10 | NUR ---
ON-GOING ASSESSMENT: CM REVIEWED CHART AND SPOKE WITH ATTENDING. PER ATTENDING PATIENT WILL LIKELY DISCHARGE TOMORROW TO SNF ([facility]). CM SPOKE WITH CANDICE AT [facility] WHO STATES THEY HAVE INSURANCE AUTH TO ACCEPT PATIENT BACK AND CAN ACCEPT HER OVER THE WEEKEND. CM NOTIFIED THEM LIKELY DISCHARGE TOMORROW. IF PATIENT HAS ORDERS TO DISCHARGE OVER THE WEEKEND CALL REPORT TO [facility] AND ASK FOR THE [facility]:[phone]. FAX ORDERS TO THEIR FAX [phone]. TRANSPORTATION CAN BE ARRANGED IF NEEDED THROUGH [facility]: [phone]. CM NOTIFIED PATIENTS SON FERMIN AND DAUGHTER MARLENE OF LIKELY DISCHARGE TOMORROW AND THEY WOULD LIKE TO BE CALLED IF PATIENT IS DISCHARGED.
[2018-10-28 15:27] VITALS: BP 146/73
--- NOTE | 2018-10-28 16:29 | NUR ---
ASSUMED CARE OF PT AT 0715. PT IS A&OX4. IS ON ROOM AIR. REPORTS PAIN IN ABD THAT IS BEING MANAGED WITH PAIN MEDS. PREVENA IN PLACE. PT IS Q2H TURNS, BUT IS ABLE TO ASSIST WITH REPOSITIONING. PT HAS SMALL HEALING WOUND ON BUTTOCKS. PT IS UP WITH [facility]IFT TRANSFER PER PHYSICAL THERAPIST. SCDS IN PLACE. LABS & VITALS REVEIWED. FALL PRECAUTIONS & HOURLY ROUNDING MAINTAINED.
[2018-10-28 19:26] VITALS: BP 156/84
--- NOTE | 2018-10-29 03:09 | NUR ---
PATIENT IS ALERT AND ORIENTED. PATIENT IS POST OP DAY 4. PATIENT IS PASSING GAS AND SITTING UP ON THE SIDE OF THE BED. NO BM YET PATIENT IS GETTING STOOL SOFTENERS. PATIENT VOIDING PER LITTLE. PATIENT HAS WOUND TO COCCYX. PATIENT IS Q2TURN BUT WANT TO SLEEP THROUGH NIGHT. PATIENT HAS PREVENA VAC TO ABDOMIN FOR COLOSTOMY REVERSAL SURGERY ON THE . WOUND VAC INTACT. PATIENT IS TIPICALLY UP TO WHEELE CHAIR AT FACILITY. PT AND OT WORKING WITH PATIENT. PATIENTS PAIN IS TREATED WITH PAIN MEDICATION. PATIENT IS RESTING COMFORTABLEY IN BED. WCM
[2018-10-29 04:14] VITALS: BP 161/88
[2018-10-29 08:29] VITALS: BP 136/71
[2018-10-29 15:06] VITALS: BP 143/71
--- NOTE | 2018-10-29 19:41 | NUR ---
Pt is op for a few days for colostomy reversal. prevena vac in place and intact. Pt is tolerating her advancing diet and had a liquid stool later part of the day. VS stable, POC and medications given. Wound care done, seen by Dr. Lowery as well, barrier cream placed. FC patent and training light [id number] urine. DC orders given. Called out report to the facility and transportation called. Pt is now dc
--- NOTE | 2018-11-02 20:29 | O ---
[facility] [place] [address] OPERATIVE REPORT Name: AZALIA CAMERON Room #: 451-P [facility] IN M.R.#: [id number] Admission: 10/24/18 ������������������ Attend Phys: Gerri Cabrera MD Discharge: 10/29/18 ������������������ Date of : 49 Report #: [id number] THIS REPORT FOR: //name// CC: Gerri Cabrera DATE OF SERVICE: 10/25/2018 SURGEON: Tano Morgan MD FISH HEADER: None. PREOPERATIVE DIAGNOSES: 1. Retracted colostomy with colocutaneous fistula/abscess. 2. History of sacral decubitus ulcer, status post excisional debridement and laparoscopic-assisted diverting end-transverse colostomy. 3. Morbid obesity. 4. Type 2 diabetes mellitus. 5. Hypertension. 6. Cardiomyopathy. 7. Gastroesophageal reflux disease. 8. Immobility. POSTOPERATIVE DIAGNOSES: 1. Retracted colostomy with colocutaneous fistula/abscess. 2. History of sacral decubitus ulcer, status post excisional debridement and laparoscopic-assisted diverting end-transverse colostomy. 3. Morbid obesity. 4. Type 2 diabetes mellitus. 5. Hypertension. 6. Cardiomyopathy. 7. Gastroesophageal reflux disease. 8. Immobility. PROCEDURES: 1. Exploratory laparotomy. 2. Lysis of adhesions. 3. Colostomy reversal with partial colectomy and colocolonic anastomosis. 4. Mobilization of the hepatic flexure. 5. Excision of necrotic abdominal wall/fistula tract. 6. Application of Prevena topical wound VAC. ANESTHESIA: General endotracheal anesthesia. ESTIMATED BLOOD LOSS: 50 mL SPECIMEN: Segment of transverse colon in 2 pieces, colostomy. [facility] [address] [place] [address] OPERATIVE REPORT Name: AZALIA CAMERON Room #: 451-P [facility] M.R.#: [id number] Admission: 10/24/18 ������������������ Attend Phys: Gerri Cabrera MD Discharge: 10/29/18 ������������������ Date of : 47 Report #: [id number] COMPLICATIONS: None appreciated. INDICATIONS FOR PROCEDURE: This is a 73-year-old female patient who had undergone previous sacral debridement and a diverting end-transverse colostomy on 06/29/2018 to facilitate sacral wound care. The patient has had difficulty with retraction of her stoma, although it has remained functional and has developed colocutaneous fistula in the subcutaneous tissue after having developed abscesses. The patient's sacral decubitus ulcer has substantially healed to the point at which colostomy reversal could be considered. She presents today for takedown of the colostomy. OPERATIVE FINDINGS: Upon entrance into the abdominal cavity, the patient was found to have significant intra-abdominal adhesions from her previous operations. After resecting necrotic/nonviable colon down to healthy tissue, in order to create a tension-free anastomosis, mobilization of the hepatic flexure was necessary. The 75 mm stapled [id number] functional end-to-end anastomosis was palpably patent after its creation. The fistula tract extended medially associated with small abscesses present in the subcutaneous tissue in relation to the stoma. No other significant intra-abdominal pathology was seen. At the conclusion of the operation, sponge, needle and instrument counts were correct. DESCRIPTION OF PROCEDURE IN DETAIL: After the risks, benefits and expectations of the operation were discussed in detail with the patient, informed consent was obtained. The patient was identified in the preoperative holding area. She was given IV antibiotics as documented in the chart in line with SCIP metrics. She was on a scheduled antibiotic regimen prior to her arrival in the operating room. The patient was taken to the operating room and she was placed in the supine position. SCDs were placed on the patient's bilateral lower extremities and pneumatic compression was initiated. The patient was then given IV sedation. She was intubated without incident. Her abdomen was prepped and draped in standard sterile fashion. A timeout was performed to identify the correct patient and procedure. A sharp #10 blade scalpel was used to make a vertical midline incision through the skin and subcutaneous tissue. Electrocautery was used to dissect through subcutaneous tissue down to the fascia. The fascia was then opened along the length of the incision. At the inferior most part of the incision near the umbilicus, adhesions were present. The incision was carried around the umbilicus on the right. The fascia was opened along the length of the incision. The underlying adhesions of omentum and small bowel to the anterior abdominal wall were carefully taken down with blunt dissection, sharp dissection and judicious use of electrocautery. After taking down the adhesions, the colon was seen extending up to the anterior abdominal wall. The colon itself was severely strictured. A green load contour stapler was then used to staple off the colon where it entered the subcutaneous tissue after isolating the stoma. The [address] [address] OPERATIVE REPORT Name: AZALIA CAMERON Room #: 451-P [facility] IN M.R.#: [id number] Admission: 10/24/18 ������������������ Attend Phys: Gerri Cabrera MD Discharge: 10/29/18 ������������������ Date of : 47 Report #: [id number] resection of more distal transverse colon was cleaned up and stapled off with a blue load 75 mm DUSTIN stapler. The planned anastomosis was not without tension and as a result, decision was made to mobilize the hepatic flexure. This was done so with appropriate traction and electrocautery. After mobilizing the hepatic flexure, the 2 parts of the transverse colon came together without tension. The [id number] functional end-to-end anastomosis was then created. A 3-0 PDS suture was placed to approximate the antimesenteric surfaces of the colon. The antimesenteric staple line corners were then excised. The 75 mm blue load DUSTIN stapler was then used to create the anastomosis. The stapler was passed down to each limb of the colon. The stapler was then tightened and fired, then removed. The common colotomy was approximated with Allis clamps. A blue load 60 mm TX stapler was then used to staple off the common colotomy. The excess tissue was excised. A 3-0 PDS suture was placed at the crotch of the anastomosis to serve as an anti-tension suture in this area. The mesenteric defect was closed with a running 3-0 PDS suture. Interrupted 3-0 PDS Lembert sutures were used to imbricate the common colotomy staple line. The colonic anastomosis was palpably patent. The abdominal cavity was then copiously irrigated. The strictured colostomy and fistula tract were then opened with a transverse incision. The end colostomy was excised from the subcutaneous tissue. Purulent fluid was encountered, as was the fistula tract. The tract was excised. Debridement was carried down to healthy bleeding tissue. Bleeding points were then made hemostatic with electrocautery. The fascial opening for the colostomy was closed with a running 0 PDS suture in 2 layers. The wound was then copiously irrigated. There was a connection within the subcutaneous tissue from the colostomy site to the midline wound. This area was closed off with a running 2-0 Vicryl suture to separate the 2 areas. After ensuring final hemostasis within the abdominal cavity and that the sponge, needle and instrument counts were correct, the midline abdominal wall fascia was closed with a looped #1 PDS suture. The subcutaneous tissue was cleansed and the skin was stapled for closure. The colostomy site that contained the abscess and fistula tract were closed loosely with neema with allen advanced into the wound. 4 x 4s were then placed over the allen. The skin was cleansed and dried. The Prevena was placed over the midline wound contiguous with the gauze covering the colostomy wound. The Prevena device held a good seal. The patient tolerated the procedure well. She was awakened, extubated and taken to the recovery room in stable condition with no apparent intraoperative complications. ��������������������������������������������� <ELECTRONICALLY SIGNED> ���������������������������������������� By: Tano Morgan MD, FACS ��������������������������������������������� 11/02/18 2029 [id number] Tano Morgan MD, FACS /nt
== END 2018-10-29 19:00 | DRG 329 ==
LOC: ER 11:52 → 4W 14:42 → EROBS 14:42 → 4W 18:14
PROVIDERS: Physician Assistant; Surgery; ADMIT Internal Medicine
DX: K94.02 Colostomy infection (principal); L89.214 Pressure ulcer of right hip, stage 4; L89.154 Pressure ulcer of sacral region, stage 4; K63.2 Fistula of intestine; I42.9 Cardiomyopathy, unspecified; L02.211 Cutaneous abscess of abdominal wall; K94.09 Other complications of colostomy; E11.40 Type 2 diabetes mellitus with diabetic neuropathy, unspecified; M17.0 Bilateral primary osteoarthritis of knee; I10 Essential (primary) hypertension; D50.9 Iron deficiency anemia, unspecified; E66.01 Morbid (severe) obesity due to excess calories; K21.9 Gastro-esophageal reflux disease without esophagitis; Y83.8 Other surgical procedures as the cause of abnormal reaction of the patient, or of later complication, without mention of misadventure at the time of the procedure; Y92.89 Other specified places as the place of occurrence of the external cause; Z68.39 Body mass index [BMI] 39.0-39.9, adult; Z98.42 Cataract extraction status, left eye; Z90.49 Acquired absence of other specified parts of digestive tract; Z98.41 Cataract extraction status, right eye; Z79.82 Long term (current) use of aspirin; Z79.84 Long term (current) use of oral hypoglycemic drugs; Z79.899 Other long term (current) drug therapy; Z82.49 Family history of ischemic heart disease and other diseases of the circulatory system; Z83.3 Family history of diabetes mellitus
CPT/HCPCS: 10040; 50010; 50093; 50101; 50290; 50386; 50953; 51114; 51412; 51435; 51708; 51712; 56524; 56525; 56526; 56527; 56530; 57092; 62110; 62900; 70005

== ENCOUNTER 2019-06-12 07:34 | Inpatient (IN) | payer MEDICARE ==
[2019-06-05 09:20] LABS: URINE BILIRUBIN NEGATIVE (Negative); URINE BLOOD 1+ (Negative); URINE CLARITY CLOUDY; URINE COLOR YELLOW; URINE GLUCOSE-RANDOM* NEGATIVE (Negative); URINE KETONES NEGATIVE (Negative); URINE LEUKOCYTES-REFLEX 2+ (Negative); URINE NITRITE-REFLEX POSITIVE (Negative); URINE PROTEIN (DIPSTICK) TRACE (Negative); URINE SPECIFIC GRAVITY >= 1.030 (1.005-1.035)
[2019-06-05 09:37] LABS: BACTERIA-REFLEX 1-9 Few /HPF (None Seen); CASTS None Seen /LPF (None Seen); CRYSTALS None Seen /LPF (None Seen); SQUAMOUS >10 Many /LPF (0-3); URINE RBC None Seen /HPF (0-2); URINE WBC-REFLEX >25 Many /HPF (0-5)
[2019-06-05 09:48] LABS: HEMOGLOBIN 12.3 gm/dL (12.0-15.0); MCH 28.5 pg (26.0-34.0); MCHC 32.3 g/dL (28.0-37.0); MCV 88.4 fL (80.0-100.0); RBC 4.3 mil/uL (4.20-5.00); RDW 13.7 % (10.5-14.5)
[2019-06-05 09:56] LABS: ALBUMIN 2.9 g/dL (3.4-5.0); CALCIUM 8.9 mg/dL (8.5-10.1); POTASSIUM 3.6 mmol/L (3.5-5.1)
[2019-06-05 10:10] LABS: PROTIME 10.4 Seconds (9.3-11.4)
[2019-06-05 23:10] LABS: GLYCOHEMOGLOBIN (HGB A1C) 6.7 % (4.8-5.6)
[~2019-06-12] VITALS: Ht 172.7 cm; Wt 118.8 kg
[~2019-06-12 07:34] MED LIST changes: +CLARITIN10 M3 PO; +GABAPENTIN600 M1 PO; +NORVASC 2.5 MG2.5 M1 PO; +SPIRONOLACTONE25 MG PO; +VOLTAREN GEL 1100 GM TOP
[2019-06-12 09:17] VITALS: BP 147/67
[2019-06-12 14:56] VITALS: BP 159/90
[2019-06-12 16:58] VITALS: BP 146/61
--- NOTE | 2019-06-12 18:25 | NUR ---
74 [facility]. IV INTACT IN L HAND. SUNITHA DRSG INTACT ON R KNEE WITH POLAR PACK. DENIES ANY PAIN AT THIS TIME. TOLERATING PO WELL. UP WITH PT TODAY. ORIENTED PT TO ROOM CALL LIGHT W/I REACH.
[2019-06-12 19:28] VITALS: BP 148/71
[2019-06-12 21:30] VITALS: BP 159/70
[2019-06-12 23:55] VITALS: BP 159/70
[2019-06-13 04:42] VITALS: BP 131/76
--- NOTE | 2019-06-13 04:44 | NUR ---
Assumed pt care at 1900. A/OX4,VSS. C/o pain to right knee medicated with Leopold per EMAR with relief reported. SUNITHA dsg/polar pack in place on right knee w/o problems. Pt is up with assist of 1 GB/RW. Resting quietly at this time no distress noted,call light/personal items within reach. Will continue to monitor pt.
[2019-06-13 05:40] LABS: CALCIUM 8.4 mg/dL (8.5-10.1); CREATININE 0.9 mg/dL (0.6-1.0); MAGNESIUM 1.7 mg/dL (1.8-2.4); POTASSIUM 4.3 mmol/L (3.5-5.1)
[2019-06-13 05:43] LABS: ABSOLUTE NEUTROPHILS 6.6 thou/uL (1.4-8.2); BASOPHILS 0.2 % (0.0-2.0); EOSINOPHILS 0.1 % (0.0-3.0); HEMATOCRIT 31.1 % (37.0-47.0); HEMOGLOBIN 10.1 gm/dL (12.0-15.0); LYMPHOCYTES 12.8 % (24.0-44.0); MCH 29.4 pg (26.0-34.0); MCHC 32.6 g/dL (28.0-37.0); MCV 90.2 fL (80.0-100.0); PLATELET COUNT 243 thou/uL (150-400); POLYS 76.9 % (36.0-66.0); RBC 3.44 mil/uL (4.20-5.00); RDW 14.2 % (10.5-14.5); WBC 8.6 thou/uL (4.0-11.0)
[2019-06-13 08:00] VITALS: BP 126/50
[2019-06-13 08:08] LABS: URINE BILIRUBIN NEGATIVE (Negative); URINE BLOOD NEGATIVE (Negative); URINE CLARITY CLEAR; URINE COLOR YELLOW; URINE GLUCOSE-RANDOM* 1+ (Negative); URINE KETONES NEGATIVE (Negative); URINE NITRITE-REFLEX NEGATIVE (Negative); URINE PROTEIN (DIPSTICK) NEGATIVE (Negative); URINE UROBILINOGEN 0.2 E.U./dl (0.2-1.0)
[2019-06-13 08:28] LABS: URINE LEUKOCYTES-REFLEX 1+ (Negative)
[2019-06-13 08:29] LABS: CASTS None Seen /LPF (None Seen); SQUAMOUS 4-10 Moderate /LPF (0-3)
[2019-06-13 08:30] LABS: BACTERIA-REFLEX 1-9 Few /HPF (None Seen); CRYSTALS None Seen /LPF (None Seen); URINE RBC None Seen /HPF (0-2); URINE WBC-REFLEX 6-15 Few /HPF (0-5); WBC CLUMPS Occasional (None Seen)
--- NOTE | 2019-06-13 09:49 | NUR ---
PT RESTING IN BED EATING BREAKFAST. BLOOD SUGARS MONITORED AND S/S INSULIN PER ORDERS. TOOK AM MEDS INCLUDING PAIN MED. PT TO WORK WITH THERAPY. PICCO DRESSING INTACT TO RIGHT KNEE. PT IS PLEASANT AND COOPERATIVE WITH CARE.
--- NOTE | 2019-06-13 10:49 | NUR ---
INITIAL ASSESSMENT: Pt evaluated for d/c planning needs. Reviewed chart and spoke with nurse and pt. Pt is alert and oriented. Pt lives in her own house and daughter and 5 grandchildren live with her. Pt has walker at home. Pt was hospitalized earlier this year and went to [facility] for rehab. Pt hopes to return to [facility] for rehab after d/c from hospital. Asked media planner to fax referral to facility. Will remain available to assist as needed.
--- NOTE | 2019-06-13 12:13 | O ---
[facility] [place] [address] OPERATIVE REPORT Name: AZALIA CAMERON Room #: 445-P ADM IN M.R.#: [id number] Admission: 06/12/19 Attend Phys: Eduardo Cardenas MD Discharge: Date of : 47 Report #: [id number] THIS REPORT FOR: //name// CC: Deneenarianna Cardenas DATE OF SERVICE: 06/12/2019 PREOPERATIVE DIAGNOSIS: Right knee osteoarthritis. POSTOPERATIVE DIAGNOSIS: Right knee osteoarthritis. PROCEDURE: Right total knee arthroplasty using Navio robotic assistance. SURGEON: Eduardo Cardenas MD. WRAPPER REWINDER: Karin Pollock PA-C. INDICATIONS FOR WRAPPER REWINDER: Throughout the case, extensive retraction and manipulation of knee was required. This was afforded to me by my unit assistant. ANESTHESIA: LMA with an adductor canal block. IMPLANTS: Amador and Nephew, size 6 Legion cobalt chrome posterior stabilized femur, size 4 tibia, size 35 patella and a size 9 highly constrained polyethylene. TOURNIQUET TIME: 65 minutes. ESTIMATED BLOOD LOSS: 25 mL. COMPLICATIONS: None. SPECIMENS: None. CONDITION UPON LEAVING THE OPERATING ROOM: Stable. INDICATIONS FOR PROCEDURE: The patient is a 74-year-old female with severe right knee osteoarthritis who failed conservative measures for this and after discussion with her, she elected for right total knee arthroplasty. DESCRIPTION OF PROCEDURE: Risks, benefits, alternatives, complications were discussed in detail with the patient including but not limited to risk of anesthesia, risk of damage to nerves, arteries, blood vessels, risk for infection, bleeding, risk for continued knee pain, need for reoperation. Informed consent was obtained from the patient. Right knee was appropriately [facility] [address] [place] [address] OPERATIVE REPORT Name: AZALIA CAMERON Room #: 445-P ADM IN M.R.#: [id number] Admission: 06/12/19 Attend Phys: Eduardo Cardenas MD Discharge: Date of : 47 Report #: [id number] marked in the preoperative holding area. IV Ancef was given for preoperative antibiotics. Adductor canal block was placed by Anesthesia. She was brought to the operating room and placed in supine position on operating room table. LMA anesthesia was induced without complication. Tourniquet was placed on the right thigh. Right lower extremity was prepped and draped in normal sterile fashion. Timeout was performed properly identifying the patient and procedure as well as the instrumentation. All in the operating room were in agreement. Right lower extremity was exsanguinated, tourniquet was inflated. Tourniquet time was 65 minutes. Standard midline approach to knee was made with 10 blade through the skin. Dissection was taken down sharply to the fascia and deep flaps were developed medially and laterally. Fresh 10 blade was used to make a medial parapatellar arthrotomy and the knee was inspected. There was severe tricompartment osteoarthritis. ACL and PCL were removed sharply. Reference pins were placed in the femur and the tibia and knee was digitally mapped using Jascha robotic system. We sized the size 6 femur with a size 4 tibia, and 11 polyethylene. After acceptance of the intraoperative plan, the distal femoral cut was made. The 4-in-1 cutting block was placed. Anterior, posterior chamfer cuts were made. Knee was flexed. Remainder of the menisci removed with Bovie cautery. The tibial resection guide was pinned in place and tibial resection was made. After this, flexion and extension gaps were checked and found to have good balance in flexion and extension both medially and laterally. The tibia was sized, found to be a size 4. Size 4 tibial trial was placed, pinned and punched. Size 6 femoral trial was placed and this was trialed with a size 9 polyethylene. Knee was taken through range of motion, found to be stable, found to have some laxity medially throughout range of motion. It was felt we could make up for this with the final implant using a constrained liner. A 9 mm was taken off the posterior surface of the patella and a size 35 patellar trial button was placed. Knee was taken through range of motion, found to be stable, found to have good patellar tracking. After this, trial components were removed. Bony ends were thoroughly irrigated with normal saline. A final size 4 tibia, size 6 Legion cobalt chrome posterior stabilized femur and a size 35 patella were cemented in place using standard cementation techniques. While the cement cured, a periarticular injection consisting of morphine, ropivacaine, epinephrine, Toradol was placed around the knee joint capsule. A final size 9 highly constrained polyethylene was placed. A gram of vancomycin was placed deep in the joint. Fascia was closed with 0 Vicryl, skin was closed with 2-0 Vicryl, skin staple and a SUNITHA dressing was applied. The patient tolerated this procedure well and went to recovery room under care of anesthesia postoperatively. <ELECTRONICALLY SIGNED> By: Eduardo Cardenas MD 06/13/19 1213 1714 1830 Eduardo Cardenas MD /nt
[2019-06-13] MEDS ORDERED: ADULT LOW DOSE81 MG PO (12:36)
--- NOTE | 2019-06-13 14:11 | NUR ---
FAXED REFERRAL TO [facility] SPOKE WITH JERALD IN ADM SHE RECEIVED REFERRAL AND CAN ACCEPT AND WILL SUBMIT FOR AUTH. ANTICIPATE DC TOMORROW. DP TO FOLLOW.
[2019-06-13 16:15] VITALS: BP 146/73
[2019-06-13 21:15] VITALS: BP 133/58
[2019-06-13 22:00] VITALS: BP 133/58
[2019-06-14 03:50] VITALS: BP 143/60
--- NOTE | 2019-06-14 04:44 | NUR ---
Assumed pt care at 1900. A/OX4,VSS.C/o pain 05/18 controlled with Morphine IV. Up with moderate assist to BSC,RW/GB. Continent of bladder,encouraged to drink more fluids no Bm post-op verbalizes understanding. SUNITHA dsg in place on right knee/polar pack in place. Fall precautions implemented,resting quietly at this time will continue to monitor pt.
[2019-06-14 05:35] LABS: HEMATOCRIT 30.2 % (37.0-47.0); HEMOGLOBIN 9.6 gm/dL (12.0-15.0); MCH 28.8 pg (26.0-34.0); MCHC 31.9 g/dL (28.0-37.0); RBC 3.35 mil/uL (4.20-5.00); RDW 14.3 % (10.5-14.5); WBC 4.6 thou/uL (4.0-11.0)
[2019-06-14 07:27] VITALS: BP 160/93
[2019-06-14 08:59] VITALS: BP 160/93
--- NOTE | 2019-06-14 09:11 | NUR ---
PT ASSISTED TO BEDSIDE CHAIR GAIT BELT USED PT HAS SLOW STEADY GAIT. PICCO AND POLAR LO INTACT. PT GIVEN PRN PAIN MED. TOOK AM MEDS AND IS EATING BREAKFAST. PLEASANT AND COOPERATIVE WITH CARE.
--- NOTE | 2019-06-14 14:13 | NUR ---
Called clerical coordinator at [facility]. She said they have received insurance authorization and are able to accept pt today. Faxed orders to facility. Awaiting return call re: transport time. Chart copied.
== END 2019-06-14 20:15 | DRG 469 ==
LOC: 4S 07:34 → TBA 07:34 → PRE 07:48 → 4S 14:41 → PRE 17:33 → 4S 06-14 20:15
PROVIDERS: Nurse Practitioner; ADMIT Orthopaedic Surgery
PROC: 0SRC0J9 Replacement of Right Knee Joint with Synthetic Substitute, Cemented, Open Approach (ICD-10-PCS; principal; 2019-06-12)
PROC: 8E0Y0CZ Robotic Assisted Procedure of Lower Extremity, Open Approach (ICD-10-PCS; 2019-06-12)
DX: M17.11 Unilateral primary osteoarthritis, right knee (principal); E43 Unspecified severe protein-calorie malnutrition; I42.9 Cardiomyopathy, unspecified; N39.0 Urinary tract infection, site not specified; I10 Essential (primary) hypertension; E11.42 Type 2 diabetes mellitus with diabetic polyneuropathy; B96.20 Unspecified Escherichia coli [E. coli] as the cause of diseases classified elsewhere; K21.9 Gastro-esophageal reflux disease without esophagitis; Z90.49 Acquired absence of other specified parts of digestive tract; Z98.49 Cataract extraction status, unspecified eye; Z82.49 Family history of ischemic heart disease and other diseases of the circulatory system; Z68.39 Body mass index [BMI] 39.0-39.9, adult; Z83.3 Family history of diabetes mellitus; Z93.3 Colostomy status; Z23 Encounter for immunization
CPT/HCPCS: 10102; 50010; 50101; 50415; 50954; 51130; 51225; 51320; 51412; 51771; 52001; 52282; 53000; 53078; 53364; 54118; 56527; 56528; 57095; 57103; 57110; 57127; 57181; 62110; 62900; 64042; 70005

== ENCOUNTER → 2019-11-08 | Outpatient (CLI) | payer MEDICARE | LOC: SJCVCIMAG 11:14 | DX: I49.3 Ventricular premature depolarization (principal); R94.31 Abnormal electrocardiogram [ECG] [EKG]; I65.22 Occlusion and stenosis of left carotid artery; I25.10 Atherosclerotic heart disease of native coronary artery without angina pectoris; I11.0 Hypertensive heart disease with heart failure; I50.23 Acute on chronic systolic (congestive) heart failure; I42.8 Other cardiomyopathies; I73.9 Peripheral vascular disease, unspecified; E11.9 Type 2 diabetes mellitus without complications; K21.9 Gastro-esophageal reflux disease without esophagitis; E78.00 Pure hypercholesterolemia, unspecified; Z90.49 Acquired absence of other specified parts of digestive tract; Z96.651 Presence of right artificial knee joint; Z79.899 Other long term (current) drug therapy ==

== ENCOUNTER → 2020-04-08 | Outpatient (CLI) | payer MEDICARE | LOC: SJCVCIMAG 07:24 | PROVIDERS: ATTEND Internal Medicine Cardiovascular Disease | DX: I08.8 Other rheumatic multiple valve diseases (principal); I25.10 Atherosclerotic heart disease of native coronary artery without angina pectoris; I42.8 Other cardiomyopathies; E78.00 Pure hypercholesterolemia, unspecified; E11.9 Type 2 diabetes mellitus without complications; I11.0 Hypertensive heart disease with heart failure; I50.23 Acute on chronic systolic (congestive) heart failure; Z79.899 Other long term (current) drug therapy ==

== ENCOUNTER → 2020-05-20 | Outpatient (CLI) | payer MEDICARE | LOC: SJCVC 09:59 | PROVIDERS: ATTEND Internal Medicine Cardiovascular Disease | DX: I44.0 Atrioventricular block, first degree (principal); I42.8 Other cardiomyopathies; I25.10 Atherosclerotic heart disease of native coronary artery without angina pectoris; I10 Essential (primary) hypertension; E11.9 Type 2 diabetes mellitus without complications; E78.00 Pure hypercholesterolemia, unspecified; Z79.899 Other long term (current) drug therapy; Z86.79 Personal history of other diseases of the circulatory system ==

== ENCOUNTER → 2020-06-07 | Outpatient (CLI) | payer MEDICARE ==
[~2020-06-07] MED LIST changes: +ALLERCLEAR10 MG PO; +ASPIRIN EC81 M1 PO; +BYSTOLIC10 MG PO; +COZAAR 25 MG TA25 M1 PO; +DITROPAN XL10 M1 PO; +FUROSEMIDE 20 M20 MG PO; +IRON325 M1 PO; +MYRBETRIQ25 MG PO; +ROSUVASTATIN CA40 MG PO; +TRAMADOL 50 MG50 MG PO; +WAL-ZYR10 M1 PO
== END ==
LOC: LAB 09:50
PROVIDERS: ATTEND Orthopaedic Surgery
DX: Z01.812 Encounter for preprocedural laboratory examination (principal); Z20.828 Contact with and (suspected) exposure to other viral communicable diseases

== ENCOUNTER 2020-06-12 10:11 | Day surgery (SDC) | payer MEDICARE ==
[2020-06-07 11:30] LABS: HEMATOCRIT 38.5 % (37.0-47.0); HEMOGLOBIN 12.6 gm/dL (12.0-15.0); MCH 28.9 pg (26.0-34.0); MCHC 32.6 g/dL (28.0-37.0); MCV 88.6 fL (80.0-100.0); RBC 4.34 mil/uL (4.20-5.00); RDW 14.1 % (10.5-14.5)
[2020-06-07 11:42] LABS: URINE BILIRUBIN 1+ (Negative); URINE BLOOD 1+ (Negative); URINE CLARITY CLEAR; URINE COLOR YELLOW; URINE GLUCOSE-RANDOM* NEGATIVE (Negative); URINE KETONES NEGATIVE (Negative); URINE LEUKOCYTES-REFLEX TRACE (Negative); URINE NITRITE-REFLEX NEGATIVE (Negative); URINE PROTEIN (DIPSTICK) TRACE (Negative); URINE SPECIFIC GRAVITY >= 1.030 (1.005-1.035)
[2020-06-07 11:45] LABS: INR 1.1; PROTIME 10.8 Seconds (9.3-11.4)
[2020-06-07 11:46] LABS: ALBUMIN 2.9 g/dL (3.4-5.0); CALCIUM 9.3 mg/dL (8.5-10.1); CREATININE 1.2 mg/dL (0.6-1.0); POTASSIUM 3.6 mmol/L (3.5-5.1)
[2020-06-07 11:46] LABS: ICTOTEST (BILI CONFIRMATORY) Positive (Negative)
[2020-06-07 11:54] LABS: SQUAMOUS >10 Many /LPF (0-3)
[2020-06-07 11:55] LABS: CRYSTALS None Seen /LPF (None Seen); URINE RBC 3-10 Few /HPF (0-2); URINE WBC-REFLEX 0-5 Rare /HPF (0-5)
[2020-06-07 11:56] LABS: CASTS None Seen /LPF (None Seen)
[2020-06-08 00:06] LABS: GLYCOHEMOGLOBIN (HGB A1C) 6.6 % (4.8-5.6)
[~2020-06-12] VITALS: Ht 172.7 cm; Wt 124.7 kg
--- NOTE | ~2020-06-12 | O ---
[facility] [place] [address] OPERATIVE REPORT Name: AZALIA CAMERON Room #: 441-P [facility] M.R.#: [id number] Admission: 06/12/20 Attend Phys: Eduardo Cardenas MD Discharge: Date of : 47 Report #: [id number] THIS REPORT FOR: cc: Deneen Honeycutt MD,Deneen Cardenas,Eduardo Hollis MD ~ CC: Deneen Cardenas DATE OF SERVICE: 06/12/2020 PREOPERATIVE DIAGNOSIS: Left knee osteoarthritis. POSTOPERATIVE DIAGNOSIS: Left knee osteoarthritis. PROCEDURE: Left total knee arthroplasty using Navio robotic department assistant. SURGEON: Eduardo Cardenas MD. INSOLE CEMENTER: Karin Pollock PA-C. INDICATIONS FOR INSOLE CEMENTER: Throughout the case, extensive retraction and manipulation of the knee was required. This was afforded by my department assistant. ANESTHESIA: LMA with an adductor canal block. IMPLANTS: Amador and Nephew size 6 Journey II BCS cobalt chrome femur, size 4 tibia, size 13 constrained polyethylene and size 32 patella. TOURNIQUET TIME: 69. ESTIMATED BLOOD LOSS: 25 mL. COMPLICATIONS: None. SPECIMENS: None. CONDITION UPON LEAVING THE OPERATING ROOM: Stable. INDICATIONS FOR PROCEDURE: The patient is a 75-year-old female with severe left knee osteoarthritis. She had failed conservative measures for this and after discussion with her, she elected for left total knee arthroplasty. DESCRIPTION OF PROCEDURE: Risks, benefits, alternatives, complications were discussed in detail with the patient including, but not limited to risk of anesthesia, risk of damage to nerves or arteries, blood vessels, risk for [facility] [address] [place] [address] OPERATIVE REPORT Name: AZALIA CAMERON Room #: 441-P [facility].#: [id number] Admission: 06/12/20 Attend Phys: Eduardo Cardenas MD Discharge: Date of : 47 Report #: [id number] infection, bleeding, risk for continued knee pain, need for reoperation. Informed consent was obtained from the patient. Left knee was appropriately marked in the preoperative holding area. IV Ancef was given for preoperative antibiotics. She was brought to the operating room and placed in the supine position on the operating room table. LMA anesthesia was induced without complication. Tourniquet was placed on the left thigh. Left lower extremity was prepped and draped in normal sterile fashion. Timeout was performed properly identifying the patient and procedure as well as the instrumentation and implants. All in the operating room were in agreement. Left lower extremity was exsanguinated, tourniquet was inflated. Tourniquet time was 69 minutes. Standard midline approach to knee was made with 10 blade through the skin. Dissection was taken down sharply to the fascia and deep flaps were developed medially and laterally. Fresh 10 blade was used to make a medial parapatellar arthrotomy and the knee was inspected. There was severe tricompartmental osteoarthritis. ACL and PCL were removed sharply. Reference pins were placed in the femur and the tibia. The knee was then digitally mapped using the Navio system. Intraoperative plan was made and we sized the size 6 femur with a size 4 tibia and a size 10 spacer. After acceptance of the intraoperative plan, the distal femoral cut was made with a Navio bur. Distal femoral cutting block was pinned in place and distal femoral cut was made. Attention was turned to the tibia and the menisci removed with Bovie cautery. Tibial resection guide was pinned in place using the Navio for placement and tibial resection was made. After this, flexion and extension gaps were checked and found to have good balance in flexion and extension laterally. She was somewhat lax medially. It was felt we could make up for this with the final implant. After this, tibia was sized, found to be a size 4. Size 4 tibial trial was placed, pinned and punched. Size 6 femoral trial was placed and box cut was made. This was then trialed with a size 11 polyethylene up to a size 13. The size 13 polyethylene demonstrated 1 mm of laxity laterally throughout range of motion of the knee. Medially, she demonstrated about 4 mm of laxity. It was felt we could make up for this with a constrained implant, 9 mm was resected from the posterior surface of the patella and a size 32 patellar trial button was placed. Knee was taken through range of motion, found to be stable, found to have good patellar tracking. Trial components were removed. Bony ends were thoroughly irrigated with normal saline. Final size 4 tibia, size 6 Journey II BCS cobalt chrome femur and a size 32 patella were cemented in place using standard cementation techniques. While the cement cured, a periarticular injection consisting of morphine, ropivacaine, epinephrine and Toradol was placed around the knee joint capsule. After the cement cured, tourniquet was deflated. Hemostasis was obtained with Bovie cautery. A final size 13 constrained polyethylene was placed. A gram of vancomycin was placed deep in the joint. The fascia was closed with 0 Vicryl, skin was closed with 2-0 Vicryl, skin staple and a SUNITHA dressing was applied. The patient tolerated this [facility] [address] [place] [address] OPERATIVE REPORT Name: AZALIA CAMERON Room #: 441-P [facility]..#: [id number] Admission: 06/12/20 Attend Phys: Eduardo Cardenas MD Discharge: Date of : 47 Report #: [id number] procedure well and went to the recovery room under care of anesthesia postoperatively. By: 1721 1839 Eduardo Cardenas MD /nt
[2020-06-12 11:35] VITALS: BP 114/87
[2020-06-12 15:35] VITALS: BP 163/87
[2020-06-12 16:30] VITALS: BP 160/99
[2020-06-12 17:16] VITALS: BP 154/93
--- NOTE | 2020-06-12 17:29 | NUR ---
assumed care at 1530. pt came to 4s on 06/12/20 at 1530. pt is a&0 x 4. when pt first came on floor, pt denies any pain. within 30 minutes of admission assessment, pt starts to complain of pain. pt states that her pain is 5/10. Administered pain medication which gave slight relief of 4/10. pt denies SOA and dizziness. pt is tired and wants to go to sleep. Pt was hungry after surgery. Was given applesauce after testing BG of 140. vital signs are steady 150's/80. As I continue to take vital signs more, then blood pressure is starting to decrease. pt has polar care. pt has SCD hoses, GAL hose.fluids are running D5 NS at 1000 mls at 100 ml/hr.
[2020-06-12 20:32] VITALS: BP 153/74
[2020-06-13] VITALS: BP 156/77
[2020-06-13 05:26] VITALS: BP 144/72
[2020-06-13 05:32] LABS: HEMATOCRIT 32.9 % (37.0-47.0); HEMOGLOBIN 10.8 gm/dL (12.0-15.0); MCH 29.7 pg (26.0-34.0); RBC 3.65 mil/uL (4.20-5.00); RDW 14.3 % (10.5-14.5); WBC 9.9 thou/uL (4.0-11.0)
[2020-06-13 07:10] VITALS: BP 130/63
--- NOTE | 2020-06-13 08:06 | NUR ---
ASSESSED AT START OF SHIFT. PT A&OX4. DENIES N/V. PAIN MANAGED WITH PO PILLS SEE EMAR. IV INTACT WITH FLUIDS INFUSING. FALL PREC IN PLACE. POLAR PACK, SCD'S, TEDHOSE ON BLE. PT RESTING WELL THIS SHIFT.
--- NOTE | 2020-06-13 09:59 | NUR ---
PATIENT ATE BREAKFAST TOOM AM MEDS AND THEN WALKED THE UNIT WITH PT THERAPY. PT STATES NO PAIN OR RESP DISTRESS. PT HAS SCD'D GAL AMADORE JANETH IN PLACE. HAS PICCO DRESSING IN PLACE AND POLAR PACK. PT STATES HOPES TO GO HOME. IS PLEASANT AND COOPERATIVE WITH CARE.
[2020-06-13 11:22] VITALS: BP 130/63
[2020-06-13 16:02] VITALS: BP 143/44
[2020-06-13 19:11] VITALS: BP 128/41
--- NOTE | 2020-06-14 02:59 | NUR ---
ASSESSED AT START OF SHIFT 1900. PT SITTING UP IN CHAIR. ASSISTX1 TO THE BED AND BSC. SUNITHA DRESSING IN PLACE. RATES PAIN 5/10 MANAGED BY PO PILL. POLAR PACK, SCD'S AND TEDHOSE INTACT. PT RESTING WELL THIS SHIFT WILL CONT WITH POC TILL EOS.
[2020-06-14 03:43] VITALS: BP 162/85
[2020-06-14 05:04] LABS: HEMATOCRIT 29.8 % (37.0-47.0); HEMOGLOBIN 9.7 gm/dL (12.0-15.0); MCH 29.2 pg (26.0-34.0); MCHC 32.4 g/dL (28.0-37.0); MCV 89.9 fL (80.0-100.0); RBC 3.32 mil/uL (4.20-5.00); RDW 14.2 % (10.5-14.5); WBC 5.9 thou/uL (4.0-11.0)
[2020-06-14 07:22] VITALS: BP 134/73
--- NOTE | 2020-06-14 10:40 | NUR ---
PT IS AOX4, VSS, PAIN CONTROLLED WITH ORAL ANALGESIC. PT WORKING WELL WITH PHYSICAL THERAPY, SCD, POLAR PACK, AND GAL HOSE IN PLACE. SUNITHA DRESSING APPEARS CDI. PT CALLS APPROPRIATELY, FALL PRECAUTIONS IN ORDER. PT SCHEDULED TO DISCHARGE AT 1330 TO SNF. WILL CONTINUE TO MONITOR.
--- NOTE | 2020-06-14 17:18 | NUR ---
FAXED DC ORDERS/SUMMARY TO [facility] SPOKE WITH MALU IN INTAKE SHE RECEIVED ORDERS AND WILL CALL TO ARRANGE VISITS.
== END 2020-06-14 15:50 | disposition home or self-care (01) ==
LOC: OR 10:11 → TBA 10:19 → PRE 10:32 → EDSTATUS 11:25 → OR 11:26 → PRE 12:11 → 4S 15:29 → OR 06-14 15:50
PROVIDERS: ATTEND Orthopaedic Surgery
DX: M17.12 Unilateral primary osteoarthritis, left knee (principal); M25.562 Pain in left knee; I10 Essential (primary) hypertension; E78.5 Hyperlipidemia, unspecified; E11.9 Type 2 diabetes mellitus without complications; D64.9 Anemia, unspecified; K21.9 Gastro-esophageal reflux disease without esophagitis; Z96.651 Presence of right artificial knee joint; Z98.41 Cataract extraction status, right eye; Z98.42 Cataract extraction status, left eye; Z90.49 Acquired absence of other specified parts of digestive tract; Z98.890 Other specified postprocedural states; Z79.899 Other long term (current) drug therapy; Z98.51 Tubal ligation status; Z93.3 Colostomy status; Z79.82 Long term (current) use of aspirin
CPT/HCPCS: 50010; 50101; 50415; 50954; 51130; 51225; 51320; 51412; 53000; 53078; 56527; 56528; 57095; 57103; 57110; 57127; 57180; 58239; 62110; 62900; 64042; 70005

== ENCOUNTER → 2020-12-09 | Outpatient (CLI) | payer MEDICARE | LOC: SJCVCIMAG 07:45 | PROVIDERS: ATTEND Internal Medicine Cardiovascular Disease | DX: I08.3 Combined rheumatic disorders of mitral, aortic and tricuspid valves (principal); I49.3 Ventricular premature depolarization; I25.10 Atherosclerotic heart disease of native coronary artery without angina pectoris; I42.8 Other cardiomyopathies; I10 Essential (primary) hypertension; E78.00 Pure hypercholesterolemia, unspecified; K21.9 Gastro-esophageal reflux disease without esophagitis; E11.9 Type 2 diabetes mellitus without complications; I73.9 Peripheral vascular disease, unspecified; R06.00 Dyspnea, unspecified; Z72.89 Other problems related to lifestyle; Z79.82 Long term (current) use of aspirin; Z79.899 Other long term (current) drug therapy ==